=== PATIENT | male | born 1955 | race Caucasian/White ===

== ENCOUNTER 2016-06-17 18:48 | Inpatient (IN) | payer BC ==
[2016-06-17] MEDS ORDERED: SODIUM CHLORIDE 0.9% 500 ML IV STA ×2 (21:00→22:21)
[2016-06-17] MEDS ORDERED: SODIUM CHLORIDE 0.9% 1,000 ML IV STA (21:00)
[2016-06-17] MEDS ORDERED: ONDANSETRON 4 MG/2 ML VIAL IVP STA (21:01)
[2016-06-17] MEDS ORDERED: PANTOPRAZOLE 40 MG/10 ML VIAL IVP STA (21:01)
--- NOTE | 2016-06-17 21:21 | ED ---
General Adult HPI - General Chief complaint: Nausea/Vomiting/Diarrhea Stated complaint: DIARRHEA X 5 DAYS, POSS DEHYDRATION Time Seen by Provider: 06/17/16 20:35 Source: patient, RN notes reviewed, old records reviewed Mode of arrival: ambulatory - History of Present Illness Initial comments: This is a 60-year-old male ER for evaluation of persistent diarrhea and anorexia , decreased appetite. Occasional abdominal cramping. Patient has no fevers. Patient has a significant medical history of recent surgery, extensive secondary prostate cancer, patient has continued diarrhea, has been inpatient hospitalized for this diarrhea and was seen by Lavon and Bibiana. Patient has not been doing well at home, and has had multiple repeat recent admissions. Again patient has recent UTI with antibiotic use. No fevers. No blood in his stool. - Related Data Home Medications Medication Instructions Recorded Confirmed Aspirin 81 mg PO DAILY 06/17/16 06/17/16 Bisoprolol-Hctz 10-6.25 mg [Ziac 1 tab PO DAILY 06/17/16 06/17/16 10-6.25] Budesonide-Formot 160-4.5 Mcg 2 puff INHALATION RT-BID PRN 06/17/16 06/17/16 [Symbicort 160-4.5 Mcg Inhaler] Docusate [Colace] 100 mg PO BID PRN 06/17/16 06/17/16 Methotrexate Sodium [Methotrexate] 15 mg PO GENAO 06/17/16 06/17/16 Rosuvastatin Calcium [Crestor] 20 mg PO HS 06/17/16 06/17/16 oxyCODONE HCL [Roxicodone] 5 mg PO Q6H PRN 06/17/16 06/17/16 oxyCODONE HCL [Roxicodone] 10 mg PO Q6H PRN 06/17/16 06/17/16 Allergies Allergy/AdvReac Type Severity Reaction Status Date / Time No Known Allergies Allergy Verified 06/17/16 20:48 Review of Systems ROS Statement: Those systems with pertinent positive or pertinent negative responses have been documented in the HPI. ROS Other: All systems not noted in ROS Statement are negative. Past Medical History Additional Past Medical History / Comment(s): bladder CA History of Any Multi-Drug Resistant Organisms: MRSA Date of last positivie culture/infection: 2009 MDRO Source:: blood Past Surgical History: Coronary Bypass/CABG Additional Past Surgical History / Comment(s): urectomy Past Psychological History: No Psychological Hx Reported Smoking Status: Never smoker Past Alcohol Use History: None Reported Past Drug Use History: None Reported General Exam General appearance: alert, in no apparent distress Head exam: Present: atraumatic, normocephalic, normal inspection Eye exam: Present: normal appearance, PERRL, EOMI. Absent: scleral icterus, conjunctival injection, periorbital swelling ENT exam: Present: normal exam, mucous membranes moist Neck exam: Present: normal inspection. Absent: tenderness, meningismus, lymphadenopathy Respiratory exam: Present: normal lung sounds bilaterally. Absent: respiratory distress, wheezes, rales, rhonchi, stridor Cardiovascular Exam: Present: regular rate, normal rhythm, normal heart sounds. Absent: systolic murmur, diastolic murmur, rubs, gallop, clicks GI/Abdominal exam: Present: soft, normal bowel sounds. Absent: distended, tenderness, guarding, rebound, rigid Extremities exam: Present: normal inspection, full ROM, normal capillary refill. Absent: tenderness, pedal edema, joint swelling, calf tenderness Back exam: Present: normal inspection Neurological exam: Present: alert, oriented X3, CN II-XII intact Psychiatric exam: Present: normal affect, normal mood Skin exam: Present: warm, dry, intact, normal color. Absent: rash Course Vital Signs 06/17/16 19:53 Temperature 98.6 F Pulse Rate 107 H Respiratory 18 Rate Blood Pressure 132/60 O2 Sat by Pulse 98 Oximetry - Reevaluation(s) Reevaluation #1: 06/17/16 21:20 Review of medical record including today's earlier lab work Medical Decision Making - Medical Decision Making 60 mailed E her for evaluation. He presents for evaluation of diarrhea, UTI, multiple complications and recent medical history, dehydration and hyponatremia. Patient will be admitted for IV fluid resuscitation, symptomatic therapy and replacement of sodium - Lab Data Result diagrams: 06/17/16 21:27 06/17/16 21:27 Lab Results 06/17/16 06/17/16 06/17/16 Range/Units 21:27 21:27 21:27 WBC 12.2 H (3.8-10.6) k/uL RBC 2.85 L (4.30-5.90) m/uL Hgb 9.2 L (13.0-17.5) gm/dL Hct 27.9 L (39.0-53.0) % MCV 97.7 (80.0-100.0) fL MCH 32.3 (25.0-35.0) pg MCHC 33.0 (31.0-37.0) g/dL RDW 16.8 H (11.5-15.5) % Plt Count 196 (150-450) k/uL Neutrophils % 87 % Lymphocytes % 5 % Monocytes % 2 % Eosinophils % 6 % Basophils % 0 % Neutrophils # 10.6 H (1.3-7.7) k/uL Lymphocytes # 0.6 L (1.0-4.8) k/uL Monocytes # 0.2 (0-1.0) k/uL Eosinophils # 0.7 (0-0.7) k/uL Basophils # 0.0 (0-0.2) k/uL Poikilocytosis Slight Anisocytosis Slight Macrocytosis Slight PT (9.0-12.0) sec INR (<1.1) APTT (22.0-30.0) sec Sodium 128 L (137-145) mmol/L Potassium 4.4 (3.5-5.1) mmol/L Chloride 102 (98-107) mmol/L Carbon Dioxide 17 L (22-30) mmol/L Anion Gap 9 mmol/L BUN 55 H (9-20) mg/dL Creatinine 2.80 H (0.66-1.25) mg/dL Est GFR (MDRD) Af Amer 28 (>60 ml/min/1.73 sqM) Est GFR (MDRD) Non-Af 23 (>60 ml/min/1.73 sqM) Glucose 122 H (74-99) mg/dL Plasma Lactic Acid Tu (0.7-2.0) mmol/L Calcium 8.4 (8.4-10.2) mg/dL Phosphorus 4.1 (2.5-4.5) mg/dL Magnesium 1.8 (1.6-2.3) mg/dL Total Bilirubin 1.0 (0.2-1.3) mg/dL AST 59 (17-59) U/L ALT 64 (21-72) U/L Alkaline Phosphatase 206 H (38-126) U/L Total Creatine Kinase <20 L (55-170) U/L CK-MB (CK-2) 0.6 (0.0-2.4) ng/mL CK-MB (CK-2) Rel Index 0.0 Troponin I <0.012 (0.000-0.034) ng/mL Total Protein 6.2 L (6.3-8.2) g/dL Albumin 3.0 L (3.5-5.0) g/dL Urine Color Urine Appearance (Clear) Urine pH (5.0-8.0) Ur Specific Hyder (1.001-1.035) Urine Protein (Negative) Urine Glucose (UA) (Negative) Urine Ketones (Negative) Urine Blood (Negative) Urine Nitrite (Negative) Urine Bilirubin (Negative) Urine Urobilinogen (<2.0) mg/dL Ur Leukocyte Esterase (Negative) Urine RBC (0-5) /hpf Urine WBC (0-5) /hpf Urine WBC Clumps (None) /hpf Amorphous Sediment (None) /hpf Urine Bacteria (None) /hpf Hyaline Casts (0-2) /lpf Urine Mucus (None) /hpf Urine Yeast (Budding) (None) /hpf 06/17/16 06/17/16 06/17/16 Range/Units 21:27 21:27 21:27 WBC (3.8-10.6) k/uL RBC (4.30-5.90) m/uL Hgb (13.0-17.5) gm/dL Hct (39.0-53.0) % MCV (80.0-100.0) fL MCH (25.0-35.0) pg MCHC (31.0-37.0) g/dL RDW (11.5-15.5) % Plt Count (150-450) k/uL Neutrophils % % Lymphocytes % % Monocytes % % Eosinophils % % Basophils % % Neutrophils # (1.3-7.7) k/uL Lymphocytes # (1.0-4.8) k/uL Monocytes # (0-1.0) k/uL Eosinophils # (0-0.7) k/uL Basophils # (0-0.2) k/uL Poikilocytosis Anisocytosis Macrocytosis PT 12.3 H (9.0-12.0) sec INR 1.2 (<1.1) APTT 31.7 H (22.0-30.0) sec Sodium (137-145) mmol/L Potassium (3.5-5.1) mmol/L Chloride (98-107) mmol/L Carbon Dioxide (22-30) mmol/L Anion Gap mmol/L BUN (9-20) mg/dL Creatinine (0.66-1.25) mg/dL Est GFR (MDRD) Af Amer (>60 ml/min/1.73 sqM) Est GFR (MDRD) Non-Af (>60 ml/min/1.73 sqM) Glucose (74-99) mg/dL Plasma Lactic Acid Tu 0.6 L (0.7-2.0) mmol/L Calcium (8.4-10.2) mg/dL Phosphorus (2.5-4.5) mg/dL Magnesium (1.6-2.3) mg/dL Total Bilirubin (0.2-1.3) mg/dL AST (17-59) U/L ALT (21-72) U/L Alkaline Phosphatase (38-126) U/L Total Creatine Kinase (55-170) U/L CK-MB (CK-2) (0.0-2.4) ng/mL CK-MB (CK-2) Rel Index Troponin I (0.000-0.034) ng/mL Total Protein (6.3-8.2) g/dL Albumin (3.5-5.0) g/dL Urine Color Yellow Urine Appearance Cloudy (Clear) Urine pH 6.5 (5.0-8.0) Ur Specific Hyder 1.010 (1.001-1.035) Urine Protein 1+ H (Negative) Urine Glucose (UA) Negative (Negative) Urine Ketones Negative (Negative) Urine Blood Moderate H (Negative) Urine Nitrite Negative (Negative) Urine Bilirubin Negative (Negative) Urine Urobilinogen <2.0 (<2.0) mg/dL Ur Leukocyte Esterase Large H (Negative) Urine RBC 97 H (0-5) /hpf Urine WBC >182 H (0-5) /hpf Urine WBC Clumps Many H (None) /hpf Amorphous Sediment Occasional H (None) /hpf Urine Bacteria Moderate H (None) /hpf Hyaline Casts 8 H (0-2) /lpf Urine Mucus Rare H (None) /hpf Urine Yeast (Budding) Moderate H (None) /hpf Disposition Clinical Impression: Dehydration, Gastroenteritis, UTI (urinary tract infection), Hyponatremia Disposition: ADMITTED IP TO THIS HOSP Referrals: Maximilian Conn MD [Primary Care Provider] - 1-2 days
[2016-06-17 21:44] LABS: Anisocytosis Slight; Basophils % (A) 0 %; CH 32.9; CHCM 33.8; Eosinophils # (A) 0.7 k/uL (0-0.7); Eosinophils % (A) 6 %; HCT 27.9 % (39.0-53.0); HDW 3.96; HGB 9.2 gm/dL (13.0-17.5); Luc # (Auto) 0.11; Luc % (Auto) 1; Lymphocytes # (A) 0.6 k/uL (1.0-4.8); Lymphocytes % (A) 5 %; MCH 32.3 pg (25.0-35.0); MCV 97.7 fL (80.0-100.0); Macrocytosis Slight; Mean Platelet Volume 7.8; Monocytes # (A) 0.2 k/uL (0-1.0); Monocytes % (A) 2 %; Neutrophils # (A) 10.6 k/uL (1.3-7.7); Neutrophils % (A) 87 %; Poikilocytosis Slight; RBC 2.85 m/uL (4.30-5.90); RDW 16.8 % (11.5-15.5); WBC 12.2 k/uL (3.8-10.6); WBC (Perox) 12.38
[2016-06-17 21:51] LABS: Amorphous Sediment,Urine Occasional /hpf; Appearance,Urine Cloudy (Clear); Bacteria,Urine Moderate /hpf; Bilirubin,Urine Negative (Negative); Glucose,Urine (UA) Negative (Negative); Ketones,Urine Negative (Negative); Leukocyte Esterase,Urine Large (Negative); Mucus,Urine Rare /hpf; Nitrite,Urine Negative (Negative); PH, Urine 6.5 (5.0-8.0); Particle Count 16435; Protein,Urine 1+ (Negative); RBC,Urine 97 /hpf (0-5); UA Billing (MACRO vs. MICRO) MICRO; Urobilinogen,Urine <2.0 mg/dL (<2.0); WBC,Urine >182 /hpf (0-5)
[2016-06-17 21:53] LABS: Calcium 8.4 mg/dL (8.4-10.2); Magnesium 1.8 mg/dL (1.6-2.3); Phosphorous 4.1 mg/dL (2.5-4.5); Potassium 4.4 mmol/L (3.5-5.1); Total Protein 6.2 g/dL (6.3-8.2)
[2016-06-17 22:00] LABS: INR 1.2 (<1.1); Partial Thromboplastin Time 31.7 sec (22.0-30.0); Prothrombin Time 12.3 sec (9.0-12.0)
[2016-06-17 22:05] LABS: Creatine Kinase <20 U/L (55-170)
[2016-06-17 22:18] LABS: Creatine Kinase MB 0.6 ng/mL (0.0-2.4); Troponin I <0.012 ng/mL (0.000-0.034)
[2016-06-17] MEDS ORDERED: ONDANSETRON 4 MG/2 ML VIAL IVP PRN (22:21)
[2016-06-17] MEDS: SODIUM CHLORIDE 0.9% 1,000 ML IV ONE (22:39)
[2016-06-18 03:15] VITALS: BMI 36.3
[2016-06-18] MEDS ORDERED: cefTRIAXone 1,000 MG in SODIUM CHLORIDE 0.9% 100 ML IVPB SCH (09:00)
[2016-06-18] MEDS: PANTOPRAZOLE 40 MG/10 ML VIAL IVP SCH (09:12)
[2016-06-18] MEDS ORDERED: RX INFO: IV CONTRAST WAS GIVEN 1 EACH MISC MISCELLANE PRN (10:49)
[2016-06-18] MEDS: IOHEXOL 350 MG/ML 25 ML BOTTLE (ORAL USE) PO PRN ×2 (12:04→12:52)
[2016-06-18] MEDS: SODIUM CHLORIDE 0.9% 1,000 ML IV ONE (12:09)
[2016-06-18] MEDS: SODIUM CHLORIDE 0.9% 1,000 ML IV SCH (14:16)
--- NOTE | 2016-06-18 14:22 | CT ---
EXAMINATION TYPE: CT abdomen pelvis wo con DATE OF EXAM: 06/18/2016 1:43 PM COMPARISON: Previous study dated 01/14/2010. HISTORY: Recurring infection of old PUNEET site/Urostomy CT DLP: 1448.5 mGycm Automated exposure control for dose reduction was used. FINDINGS: There is some scarring in the right middle lobe. There is a 5 mm noncalcified nodule immedi ately adjacent to this is seen on image 2. There is a 4.4 mm nodule in the posterior basal segment of the left lower lobe best seen on image 7. There is a 7.5 mm nodule in the lateral basal segment of t he left lower lobe best seen on image 5 none of these lesions were present previously. There is no pleural or pericardial fluid. There is cardiomegaly. There is a prosthetic mitral valve i n place. Within the abdomen, there is evidence of old granulomatous disease involving the liver and spleen. Th e gallbladder is normal. Both adrenal glands are normal. There is bilateral hydronephrosis and hydroureter down to the level of the patient's urostomy. No placido al calcifications are seen. Limited views of the pancreas appear normal. There is moderate atheromatous calcification of the visualized arterial tree. There is no significant retroperitoneal, iliac or inguinal adenopathy. There is no significant diverticular change and there is no radiographic evidence of diverticulitis. There is a 3.4 cm annular narrowing in the proximal ascending colon. The appendix is not visualized. Small bowel loops appear normal. There is no free fluid and no free air. There is hypertrophic spondylosis within the spine as well as degenerative disc disease. IMPRESSION: 1. BILATERAL HYDRONEPHROSIS AND HYDROURETER, LIKELY SECONDARY TO THE PATIENT MOST LIKELY SECONDARY TO THE PATIENT'S UROSTOMY. 2. MULTIPLE PULMONARY NODULES. THESE WERE NOT PRESENT PREVIOUSLY. 3. CARDIOMEGALY AND A PROSTHETIC MITRAL VALVE. 4. OLD GRANULOMATOUS DISEASE OF THE LIVER AND SPLEEN. 5. ANNULAR NARROWING OF THE PROXIMAL ASCENDING COLON 6. HYPERTROPHIC SPONDYLOSIS.
[2016-06-18] MEDS ORDERED: SYMBICORT 160-4.5 MCG INHALER INHALATION PRN (15:48)
[2016-06-18] MEDS ORDERED: TEMAZEPAM 15 MG CAP PO PRN (15:59)
[2016-06-18] MEDS ORDERED: ALPRAZolam 0.25 MG TAB PO PRN (15:59)
--- NOTE | 2016-06-18 18:30 | HP ---
DATE OF ADMISSION: CHIEF COMPLAINT: Nausea, vomiting and diarrhea. HISTORY OF PRESENT ILLNESS: This 60-year-old gentleman with a past medical history of MRSA, history of coronary artery disease, coronary artery bypass grafting being followed by Dr. Conn in the outpatient setting also had a recent complicated medical history with bladder cancer. The patient had surgery at [facility] about a month ago. The patient had urostomy. Patient also had PUNEET drain at that time. The patient came home and the patient had a few episodes of diarrhea. On the , the patient had outpatient appointment with Urology Clinic at [facility] and potassium was found to be high. The patient was evaluated in the ER and subsequently patient admitted in the hospital and Bactrim DS was initiated. Patient was sent home on Bactrim DS. But currently the patient is complaining of nausea and continued diarrhea intermittently and the patient came to [facility] and admitted for further evaluation and treatment. There is no history of any fever, rigor or chills. No history of headache, loss of consciousness, seizures. The patient also had occasional abdominal cramping also. The patient also reports some leaking of clear fluid from one of the previous PUNEET sites also. The urostomy bag appears to be draining okay at this time. There is no history of fever, rigors, chills. No history of headaches, loss of consciousness, seizures. PAST MEDICAL HISTORY: History of recent bladder cancer, history of methicillin-resistant Staphylococcus aureus, coronary artery disease, coronary artery bypass graft. Medications prior to admission are: 1. Oxycodone 5 mg q.6 p.r.n. and 10 mg q.6 p.r.n. 2. Crestor 20 mg q.h.s. 3. Methotrexate 50 mg p.o. Monday. 4. Colace 100 mg b.i.d. p.r.n. 5. Symbicort 160/4.5, 2 puffs b.i.d. 7. Aspirin 81 mg daily. ALLERGIES: None. FAMILY HISTORY: History of hypertension in the family. SOCIAL HISTORY: No history of smoking, no history of alcohol intake. REVIEW OF SYSTEMS: ENT: No diminished vision, no diminished hearing. CARDIOVASCULAR: No angina or palpitations. RESPIRATORY: No cough. GI: As mentioned earlier. : As mentioned earlier. NERVOUS SYSTEM: No numbness or weakness. ALLERGY/IMMUNOLOGY: No asthma or hayfever. MUSCULOSKELETAL: As mentioned earlier. HEMATOLOGY/ONCOLOGY: As mentioned earlier. ENDOCRINE: No history of diabetes or hypothyroidism. CONSTITUTIONAL: As mentioned earlier. DERMATOLOGY: As mentioned earlier. RHEUMATOLOGY: Negative. PSYCHIATRY: Negative. PHYSICAL EXAMINATION: Patient is alert and oriented x3. Pulse 111, blood pressure 118/70, respirations 20, temperature 98 degrees, pulse ox 98% on room air. HEENT: Conjunctivae normal. Oral mucosa moist. NECK: No jugular venous distention. No carotid bruit. No lymph node enlargement. CARDIOVASCULAR: S1 and S2, muffled. No S3, no S4. RESPIRATORY: Breath sounds diminished at the bases. No rhonchi, no crackles. ABDOMEN: Soft, obese. Urostomy bag present. Mild diffuse discomfort to palpation. No guarding, no rigidity. No mass palpable. Minimal drainage on the left iliac was also noted, left lower quadrant. LEGS: No edema, no swelling. NERVOUS SYSTEM: Higher function as mentioned. Moves all four limbs. No focal motor deficits. LYMPHATIC: No lymphadenopathy in the neck, axillae or groin. SKIN: No ulcer, rash or bleeding. LABS: Abdominal and pelvis CAT scan, which was ordered today showed evidence of bilateral hydronephrosis and hydroureter secondary to urostomy; multiple pulmonary nodules not present previously; cardiomegaly and prosthetic mitral valve and old granulomatous disease of the liver and spleen; narrowing of the proximal ascending colon and hypertrophic spondylosis also. ASSESSMENT: 1. Nausea, vomiting, diarrhea possibly acute diarrheal disease with resulting dehydration of undetermined etiology, rule out Clostridium difficile colitis. 2. Possible acute renal failure, rule out postobstructive uropathy. 3. Bilateral hydronephrosis on the CAT scan. 4. History of recent urostomy for bladder cancer. 5. Leakage of fluid from the left iliac PUNEET drain site. 6. Hyponatremia. 7. Increased WBC. 8. Anemia, normocytic. 9. Increased random blood sugar. 10. Mild hypoalbuminemia with mild to moderate protein calorie malnutrition. 11. Possible urinary tract infection. 12. Methicillin-resistant Staphylococcus aureus. 13. History of bladder cancer. 14. History of coronary artery disease, coronary artery bypass graft. 15. Obesity with body mass index of 36.3. 16. FULL CODE. RECOMMENDATIONS AND DISCUSSION: In this 60-year-old gentleman who presented with multiple complex medical issues, we will monitor the patient closely. Continue the current medications, continue with symptomatic treatment. The patient was initiated on broad-spectrum IV antibiotics. Check a stool Clostridium difficile and also stool for WBCs and other than that, CT scan has been ordered. I would also recommend the case management director to get in touch with Urology Team at [facility] regarding the abnormal CAT scan. Otherwise, continue the rest of the medications. DVT prophylaxis. Further recommendations to follow. Copy of dictation forwarded to Dr. Conn, who is the primary physician. See orders for further details. Continue IV hydration and repeat the labs tomorrow. Also cultures were requested. MTDD
[2016-06-18] MEDS ORDERED: ATORVASTATIN 20 MG TAB PO SCH (21:00)
[2016-06-18] MEDS: HEPARIN SODIUM,PORCINE 5,000 UNIT/ML 1 ML VIAL SQ SCH (22:07)
[2016-06-18] MEDS: ATORVASTATIN 40 MG TAB PO SCH (22:09)
[2016-06-19] MEDS: SODIUM CHLORIDE 0.9% 1,000 ML IV SCH ×3 (05:41→14:14)
[2016-06-19 08:28] LABS: Anisocytosis Slight; Basophils % (A) 0 %; CH 32.7; CHCM 33.7; Eosinophils # (A) 0.7 k/uL (0-0.7); Eosinophils % (A) 6 %; HCT 25.2 % (39.0-53.0); HDW 3.93; HGB 8.4 gm/dL (13.0-17.5); Luc # (Auto) 0.16; Luc % (Auto) 1; Lymphocytes # (A) 0.4 k/uL (1.0-4.8); Lymphocytes % (A) 4 %; MCH 32.6 pg (25.0-35.0); MCHC 33.4 g/dL (31.0-37.0); MCV 97.4 fL (80.0-100.0); Macrocytosis Slight; Mean Platelet Volume 7.5; Monocytes # (A) 0.5 k/uL (0-1.0); Monocytes % (A) 4 %; Neutrophils # (A) 10.2 k/uL (1.3-7.7); Neutrophils % (A) 85 %; Poikilocytosis Slight; RBC 2.58 m/uL (4.30-5.90); RDW 17.1 % (11.5-15.5); WBC (Perox) 12.33
[2016-06-19 08:39] LABS: Calcium 8.4 mg/dL (8.4-10.2)
[2016-06-19] MEDS ORDERED: METHOTREXATE SODIUM 2.5 MG TAB PO SCH (09:00)
[2016-06-19] MEDS: PANTOPRAZOLE 40 MG/10 ML VIAL IVP SCH (09:00)
[2016-06-19] MEDS: HEPARIN SODIUM,PORCINE 5,000 UNIT/ML 1 ML VIAL SQ SCH ×2 (09:00→21:55)
[2016-06-19] MEDS: ASPIRIN 81 MG CHEW PO SCH (09:00)
[2016-06-19] MEDS: BISOPROLOL-HCTZ 10-6.25 MG 1 EACH TAB PO SCH (09:00)
--- NOTE | 2016-06-19 10:13 | P.NPCON ---
History of Present Illness - Reason for Consult acute renal failure - History of Present Illness Reason for consultation: Acute kidney injury History of present illness: Patient is a 60-year-old male seen in renal consultation for acute kidney injury. Unclear as to what his baseline renal function is. Creatinine was 2.9 on admission and is improved to 2.4 today. He was also hyponatremic with a sodium level of 128 which is improved to 132 with IV hydration. Patient has history of bladder cancer and has a urostomy tube in place. He also had a PUNEET drain which was discontinued prior to his discharge from [facility] about 2 weeks ago. Patient states he's been feeling quite weak and dizzy and also has had intermittent diarrhea for the last couple of days. Diarrhea seems to have mostly resolved as he hasn't had any in the last 24 hours. Appetite is fair. No vomiting. Does admit to using Aleve intermittently prior to coming to the hospital. Denies family history of renal disease. Denies chest pain or shortness of breath. Hemodynamically stable. Vital signs are stable. General: The patient appeared well nourished and normally developed. HEENT: Head exam is unremarkable. Neck is without jugular venous distension. LUNGS: Lungs are clear to auscultation and percussion. Breath sounds decreased. HEART: Rate and Rhythm are regular. First and second heart sounds normal. No murmurs, rubs or gallops. ABDOMEN: Abdominal exam reveals normal bowel sounds. Non-tender and non- distended. No evidence of peritonitis. EXTREMITITES: No clubbing, cyanosis, or edema. Past Medical History Additional Past Medical History / Comment(s): bladder CA History of Any Multi-Drug Resistant Organisms: MRSA Date of last positivie culture/infection: 2009 MDRO Source:: blood Past Surgical History: Coronary Bypass/CABG Additional Past Surgical History / Comment(s): urectomy/urostomy Past Psychological History: No Psychological Hx Reported Smoking Status: Never smoker Past Alcohol Use History: None Reported Past Drug Use History: None Reported - Past Family History Mother Family Medical History: Hypertension Medications and Allergies Home Medications Medication Instructions Recorded Confirmed Type Aspirin 81 mg PO DAILY 06/17/16 06/17/16 History Bisoprolol-Hctz 10-6.25 mg [Ziac 1 tab PO DAILY 06/17/16 06/17/16 History 10-6.25] Budesonide-Formot 160-4.5 Mcg 2 puff INHALATION RT-BID PRN 06/17/16 06/17/16 History [Symbicort 160-4.5 Mcg Inhaler] Docusate [Colace] 100 mg PO BID PRN 06/17/16 06/17/16 History Methotrexate Sodium [Methotrexate] 15 mg PO GENAO 06/17/16 06/17/16 History Rosuvastatin Calcium [Crestor] 20 mg PO HS 06/17/16 06/17/16 History oxyCODONE HCL [Roxicodone] 5 mg PO Q6H PRN 06/17/16 06/17/16 History oxyCODONE HCL [Roxicodone] 10 mg PO Q6H PRN 06/17/16 06/17/16 History Allergies Allergy/AdvReac Type Severity Reaction Status Date / Time No Known Allergies Allergy Verified 06/17/16 20:48 Physical Exam Vitals: Vital Signs Temp Pulse Resp BP Pulse Ox 06/19/16 07:00 97.5 F L 101 H 16 118/56 99 06/18/16 23:00 99.6 F 106 H 16 115/59 97 06/18/16 22:10 86 16 06/18/16 15:00 98.7 F 105 H 17 117/51 99 Intake and Output 06/18/16 06/19/16 06/19/16 22:59 06:59 14:59 Intake Total 240 Output Total 1300 Balance 240 -1300 Intake: Oral 240 Output: Urine 1300 Other: Voiding Method Ileal Conduit (Right) Results - Lab Results Most recent lab results Calcium 8.4 mg/dL (8.4-10.2) 06/19/16 08:05 Phosphorus 4.1 mg/dL (2.5-4.5) 06/17/16 21:27 Magnesium 1.8 mg/dL (1.6-2.3) 06/17/16 21:27 06/19/16 08:05 06/19/16 08:05 Assessment and Plan Plan: Assessment: #1. Nonoliguric acute kidney injury mostly prerenal in nature secondary to diarrhea and NSAIDs. Improving with IV hydration. Creatinine was 2.8 on admission and is down to 2.4 today. Unclear as to what his baseline renal function is. #2. Bilateral hydronephrosis status post urostomy placement 18 with stiff machine about 2 weeks ago. #3. History of bladder cancer. #4. Hypovolemic hyponatremia improving with IV hydration. #5. Metabolic acidosis secondary to acute kidney injury and diarrhea. #6. Anemia. Rule out iron deficiency. Plan: Continue normal saline to be run at 100 mL an hour. Avoid nephrotoxic agents and hypotensive episodes. Diuretics held. Start oral sodium bicarbonate supplementation. Encourage oral intake. Check iron studies. Repeat electrolytes in the morning. Thank you for the consultation. I will continue to follow the patient with you during his hospital stay.
[2016-06-19 10:49] LABS: % Iron Saturation 7.7 % (20-50)
--- NOTE | 2016-06-19 17:03 | PN ---
DATE OF SERVICE: 06/19/2016 This 60-year-old gentleman admitted with nausea, vomiting, diarrhea, possibly acute gastroenteritis and resulting dehydration, leading to acute renal failure. The patient was rehydrated. Creatinine improved to 2.44. Of interest, CAT scan of the abdomen showed bilateral hydronephrosis, possibly secondary to urostomy which was done recently, according to Dr. Eden. Also noted that the patient had some draining of clear fluid from the left iliac fossa also at the place of the previous PUNEET drain. Past medical history reviewed. REVIEW OF SYSTEMS: CARDIOVASCULAR: No angina or palpitations. RESPIRATORY: As mentioned earlier. GI: As mentioned earlier. : No dysuria. Nervous system: No numbness or weakness. Current medications are reviewed and include: 1. Xanax 0.25 t.i.d. and p.r.n. 2. Aspirin 81 mg daily. 3. Lipitor 40 mg. 4. Ziac 6.25 mg p.o. daily. 5. Symbicort 160/4.5, 2 puffs b.i.d. 6. Rocephin 1 gram daily. 7. Colace 100 mg p.o. b.i.d. 8. Heparin 5000 subcu b.i.d. 9. Methotrexate 15 mg every 7 days. 10. Zofran 4 mg IV q6h. 11. OxyIR 5 mg q.6h p.r.n. 13. Protonix 40 mg daily. 14. Restoril 15 mg q.h.s. p.r.n. PHYSICAL EXAMINATION: Patient is alert and oriented x2. Pulse 101, blood pressure is 118/56, respirations 16, temperature 97.4, pulse ox 99% on room air. HEENT: Conjunctivae normal. Oral mucosa is moist. NECK: No jugular venous distention. No carotid bruit. No lymph node enlargement. CARDIOVASCULAR: S1 and S2 muffled. No S3, no S4. RESPIRATORY: Breath sounds diminished at the bases. No rhonchi, no crackles. ABDOMEN: Soft, obese, nontender. No mass palpable. Urostomy present. Legs: No edema. No swelling. Nervous system: Higher functions as mentioned earlier. Moves all 4 limbs. No focal motor or sensory deficits. LYMPHATICS: No lymph nodes palpable in the neck, axilla or groin. SKIN: No skin ulcer, rash or bleeding. LABS: At this time shows WBC 12, hemoglobin is 8.4. Sodium is 132. CO2 is 15. Creatinine is 2.44. UA noted. Cultures are pending at this time. ASSESSMENT: 1. Nausea, vomiting, diarrhea, possible acute diuresis with gastroenteritis, resulting dehydration leading to acute renal failure, possibly acute tubular necrosis and prerenal factors. 2. Rule out postobstructive uropathy. 3. Bilateral hydronephrosis, mild on the CT scan. 4. History of recent urostomy for bladder cancer. 5. Leakage of fluid from the left iliac PUNEET drain site. 6. Hyponatremia. 7. Increased WBC. 8. Anemia, normocytic. 9. Increased random blood sugar. 10. Mild hypoalbuminemia with mild to moderate protein calorie malnutrition. 11. Possible urinary tract infection. 12. History of Methicillin-resistant Staph aureus. 13. History of bladder cancer. 14. History of coronary artery disease, coronary artery bypass grafting. 15. Obesity with body mass index of 36.3. 16. FULL CODE. RECOMMENDATIONS AND DISCUSSION: In this 60-year-old gentleman who presented with multiple complex medical issues, we will monitor the patient closely. Continue the current medications. Continue symptomatic treatment. Otherwise, continued IV fluids. Monitor closely empiric antibiotics. Repeat labs in the morning. I also discussed with the case repairer to get in touch with [facility] urology team so that they are aware of the CAT scan findings and the current state of the patient. Discussed with Chichi, the case repairer who is working on this. Otherwise, continue with the rest of the medications. Discussed with the patient, stable, but prognosis guarded. Further recommendations to follow. MTDD
[2016-06-19] MEDS: ATORVASTATIN 40 MG TAB PO SCH (21:19)
[2016-06-19] MEDS: SODIUM BICARBONATE TAB 650 MG TAB PO SCH (21:54)
[2016-06-20] MEDS: SODIUM CHLORIDE 0.9% 1,000 ML IV SCH (04:53)
[2016-06-20] MEDS: HEPARIN SODIUM,PORCINE 5,000 UNIT/ML 1 ML VIAL SQ SCH ×2 (07:57→20:18)
[2016-06-20] MEDS: BISOPROLOL-HCTZ 10-6.25 MG 1 EACH TAB PO SCH (07:57)
[2016-06-20] MEDS: SODIUM BICARBONATE TAB 650 MG TAB PO SCH ×2 (07:57→20:18)
[2016-06-20] MEDS: ASPIRIN 81 MG CHEW PO SCH (07:57)
[2016-06-20] MEDS: PANTOPRAZOLE 40 MG/10 ML VIAL IVP SCH (07:57)
[2016-06-20 08:07] LABS: Anisocytosis Slight; Basophils % (A) 0 %; CH 32.8; CHCM 33.4; Eosinophils # (A) 0.8 k/uL (0-0.7); Eosinophils % (A) 6 %; HCT 23.7 % (39.0-53.0); HDW 3.91; HGB 7.8 gm/dL (13.0-17.5); Hypochromasia Slight; Luc # (Auto) 0.13; Luc % (Auto) 1; Lymphocytes # (A) 0.5 k/uL (1.0-4.8); Lymphocytes % (A) 4 %; MCH 32.4 pg (25.0-35.0); MCHC 32.9 g/dL (31.0-37.0); MCV 98.6 fL (80.0-100.0); Macrocytosis Slight; Mean Platelet Volume 8.1; Monocytes # (A) 0.4 k/uL (0-1.0); Monocytes % (A) 3 %; Neutrophils % (A) 86 %; Poikilocytosis Slight; RDW 17.1 % (11.5-15.5); WBC 12.9 k/uL (3.8-10.6); WBC (Perox) 13.34
--- NOTE | 2016-06-20 08:30 | P.PN ---
Subjective Principal diagnosis: hydronephrosis/renal failure. This is a 60-year-old white male essentially admitted for UTI with nausea and vomiting. He had similar episode at [facility] after being treated for hydronephrosis with urostomy. The patient has an underlying history of cancer. Dr. Vázquez has been treating the patient previous to this. Objective - Vital Signs Vital signs: Vital Signs Temp 98.3 F 06/20/16 07:00 Pulse 96 06/20/16 07:00 Resp 16 06/20/16 07:00 BP 101/50 06/20/16 07:00 Pulse Ox 96 06/20/16 07:00 Intake & Output 06/19/16 06/20/16 06/20/16 18:59 06:59 18:59 Intake Total 1160 Output Total 1800 1980 Balance -1800 -820 Weight 102.058 kg Intake: Intake, IV Titration 800 Amount Sodium Chloride 0.9% 1, 800 000 ml @ 100 mls/hr IV . Q10H [facility] Rx#:[id number] Oral 360 Output: Drainage 100 380 Left Abdomen 100 380 Urine 1700 1600 Other: Voiding Method Ileal Conduit (Right) Ileal Conduit (Right) Ileal Conduit ( Right) - Constitutional General appearance: Present: obese - EENT Eyes: Absent: abnormal pupil - Respiratory Respiratory: right: CTA - Cardiovascular Rhythm: regular Heart sounds: normal: S1, S2 - Gastrointestinal General gastrointestinal: Present: soft. Absent: tenderness - Musculoskeletal Musculoskeletal: Present: gait normal - Labs CBC & Chem 7: 06/20/16 07:05 06/19/16 08:05 Labs: Abnormal Lab Results - Last 24 Hours (Table) 06/19/16 06/19/16 06/19/16 Range/Units 08:05 08:05 08:05 WBC 12.0 H (3.8-10.6) k/uL RBC 2.58 L (4.30-5.90) m/uL Hgb 8.4 L (13.0-17.5) gm/dL Hct 25.2 L (39.0-53.0) % RDW 17.1 H (11.5-15.5) % Neutrophils # 10.2 H (1.3-7.7) k/uL Lymphocytes # 0.4 L (1.0-4.8) k/uL Eosinophils # (0-0.7) k/uL Sodium 132 L (137-145) mmol/L Chloride 108 H (98-107) mmol/L Carbon Dioxide 15 L (22-30) mmol/L BUN 53 H (9-20) mg/dL Creatinine 2.44 H (0.66-1.25) mg/dL Glucose 114 H (74-99) mg/dL Iron 18 L (49-181) ug/dL TIBC 233 L (261-462) ug/dL % Saturation 7.7 L (20-50) % Ferritin 612 H (18-464) ng/mL 06/20/16 Range/Units 07:05 WBC 12.9 H (3.8-10.6) k/uL RBC 2.40 L (4.30-5.90) m/uL Hgb 7.8 L (13.0-17.5) gm/dL Hct 23.7 L (39.0-53.0) % RDW 17.1 H (11.5-15.5) % Neutrophils # 11.0 H (1.3-7.7) k/uL Lymphocytes # 0.5 L (1.0-4.8) k/uL Eosinophils # 0.8 H (0-0.7) k/uL Sodium (137-145) mmol/L Chloride (98-107) mmol/L Carbon Dioxide (22-30) mmol/L BUN (9-20) mg/dL Creatinine (0.66-1.25) mg/dL Glucose (74-99) mg/dL Iron (49-181) ug/dL TIBC (261-462) ug/dL % Saturation (20-50) % Ferritin (18-464) ng/mL Assessment and Plan (1) UTI (urinary tract infection) Status: Acute (2) Hydronephrosis Status: Acute Plan: continue current regimen of antibiotic treatment. Urinalysis with culture and sensitivities show enterococcus. Sensitivity is still pending. Anemia which is multifactorial. See orders otherwise. Time with Patient: Greater than 30
[2016-06-20 08:31] LABS: Calcium 8.3 mg/dL (8.4-10.2); Potassium 4.8 mmol/L (3.5-5.1)
--- NOTE | 2016-06-20 10:10 | PN ---
Patient is seen for followup for acute kidney injury. He was admitted to the hospital with a creatinine of 2.8. His creatinine is now down to 2.4 mg/dL. Previous creatinine is not available for comparison. Patient was also hyponatremic with sodium of 128. It is now increased to 133. Patient is maintained on IV fluids, normal saline at 100 mL an hour. On examination, he is currently comfortable, awake, not in any acute distress. Blood pressure is 101/50, heart rate 96 per minute. He is afebrile. Examination of the heart, S1 and S2. Examination of the lungs, bilateral breath sounds are heard. Decreased breath sounds in the bases. Abdomen is soft, nontender. Examination of lower extremities shows no evidence of edema. Labs reveal sodium of 133, potassium 4.8, BUN 53, serum creatinine 2.46, hemoglobin 7.8 g/dL. ASSESSMENT: 1. Acute kidney injury with renal function slightly better. 2. Rule out chronic kidney disease, previous creatinine not available for comparison. 3. Severe metabolic acidosis, CO2 is down to 11. Will start patient on IV bicarb. No ongoing diarrhea. 4. Bilateral hydronephrosis and hydroureter with a history of bladder cancer, currently with a urostomy, being managed at [facility]. 5. Hypervolemic hyponatremia, currently improved with IV hydration. 6. Severe metabolic acidosis. Start IV bicarb. Continue with oral bicarb as well. Patient may need Urology consultation.
[2016-06-20] MEDS: DEXTROSE 5% IN WATER 1,000 ML with SODIUM BICARB (1 MEQ/ML) 150 ML IV SCH (11:44)
[2016-06-20] MEDS: ATORVASTATIN 40 MG TAB PO SCH (20:18)
[2016-06-21] MEDS: DEXTROSE 5% IN WATER 1,000 ML with SODIUM BICARB (1 MEQ/ML) 150 ML IV SCH ×4 (07:22→22:10)
[2016-06-21 08:19] LABS: Anisocytosis Slight; Basophils % (A) 0 %; CH 32.4; CHCM 33.4; Eosinophils # (A) 0.6 k/uL (0-0.7); Eosinophils % (A) 6 %; HCT 23.7 % (39.0-53.0); HDW 4.01; HGB 7.8 gm/dL (13.0-17.5); Hypochromasia Slight; Luc # (Auto) 0.07; Luc % (Auto) 1; Lymphocytes # (A) 0.4 k/uL (1.0-4.8); Lymphocytes % (A) 4 %; MCH 32.2 pg (25.0-35.0); MCV 97.5 fL (80.0-100.0); Macrocytosis Slight; Mean Platelet Volume 7.1; Monocytes # (A) 0.1 k/uL (0-1.0); Monocytes % (A) 1 %; Neutrophils # (A) 8.8 k/uL (1.3-7.7); Neutrophils % (A) 88 %; Poikilocytosis Moderate; RBC 2.43 m/uL (4.30-5.90); RDW 17.1 % (11.5-15.5); WBC (Perox) 10.51
[2016-06-21] MEDS: HEPARIN SODIUM,PORCINE 5,000 UNIT/ML 1 ML VIAL SQ SCH ×2 (08:23→20:04)
[2016-06-21] MEDS: ASPIRIN 81 MG CHEW PO SCH (08:23)
[2016-06-21] MEDS: PANTOPRAZOLE 40 MG/10 ML VIAL IVP SCH (08:23)
[2016-06-21] MEDS: SODIUM BICARBONATE TAB 650 MG TAB PO SCH ×2 (08:23→20:04)
[2016-06-21] MEDS: BISOPROLOL-HCTZ 10-6.25 MG 1 EACH TAB PO SCH (08:23)
[2016-06-21 08:35] VITALS: RESP 18
[2016-06-21 08:36] LABS: Calcium 7.8 mg/dL (8.4-10.2); Potassium 4.1 mmol/L (3.5-5.1); Total Bilirubin 0.6 mg/dL (0.2-1.3); Total Protein 5.1 g/dL (6.3-8.2)
[2016-06-21] MEDS: DOCUSATE 100 MG CAP PO PRN ×2 (10:31→19:35)
--- NOTE | 2016-06-21 10:50 | CDI ---
In responding to this query, please exercise your independent professional judgment. The [facility] Coding Staff and Clinical Documentation Specialists appreciate your assistance in clarifying documentation, maintaining compliance with coding guidelines, accurately documenting patients condition and capturing severity of illness. The fact that a question is asked does not imply that any particular answer is desired or expected. Communication forms are a method of clarifying documentation and are not made part of the Legal Health Record. Thank you in advance for your clarification. Last Revision, January 2015 Frances Gao [address] [place] [address] Documentation Clarification Form Date: 06/21/2016 10:39:00 AM From: Violet Ramos RN, CCDS Admit Date: 06/17/2016 10:21:00 PM Patient Name: Jose Maria Zimmerman Visit Number: [id number] Dr. Maximilian Conn A diagnosis of UTI has been documented in the H&P and Progress Notes . History/Risk factors: Recent bladder cancer resection with urostomy Per documentation in the H&P and Progress Notes this patient was admitted with a urostomy. Clinical Indicators: 4/ Attending Progress Note: "History of recent urostomy for bladder cancer. Leakage of fluid from the left iliac PUNEET drain site. Possible urinary tract infection." 06/20 Nephrology Consult: "Bilateral hydronephrosis and hydroureter with a history of bladder cancer, currently with a urostomy, being managed at [facility]. Urinalysis: +1 Protein, moderate blood, large le, 97 rbc, > 182 wbc, many WBC clumps, moderate bacteria, 8 HC< rare mucus, moderate yeast Urine culture: + enterococcus faecium, + Diana albicans Lab results: WBC 12.2/12/12.9/10, Neutrophils 10.6/11/8.8 Treatment: Rocephin 1 gm IVPB Q 24 hrs 2L IVF Bolus In your professional opinion, can you please clarify the etiology of the UTI, if known? UTI is d/t Urostomy UTI not related to urostomy Other condition, please specify Unable to determine If an infective organism is present, please specify cause and effect relationship if applicable. Please document in your progress notes and discharge summary in order to capture severity of illness and risk of mortality. Include clinical findings that support your diagnosis. FYI: Press F11 to launch patient chart Place X here if this finding has no clinical significance, is not applicable or if you are not able to provide any additional documentation. MTDD
[2016-06-21] MEDS: SODIUM FERRIC GLUCONAT-SUCROSE 125 MG in SODIUM CHLORIDE 0.9% 100 ML IVPB SCH (12:52)
[2016-06-21] MEDS: ATORVASTATIN 40 MG TAB PO SCH (20:04)
[2016-06-21] MEDS ORDERED: VANCOMYCIN 1,000 MG in SODIUM CHLORIDE 0.9% 250 ML IVPB STA (20:37)
--- NOTE | 2016-06-21 21:24 | PN ---
Patient is seen in follow-up for acute kidney injury. His renal function has improved to some degree; however, patient has significant lower extremity edema. He denies any shortness of breath or chest pains. He is maintained on IV bicarb, which was started yesterday. Patient has had good urine output. He has an ileal conduit. Patient has been seen by Dr. Vázquez in the past but recently has had treatment at [facility] for bladder cancer. On examination, the patient is comfortable, not in any acute distress. Blood pressure is 105/57, heart rate 104 per minute. The patient is afebrile. Examination of the heart S1 and S2. Examination of the lungs: Bilateral breath sounds are heard. ABDOMEN: Soft, nontender. Examination of lower extremities shows edema 2+ bilaterally. CLOTHING CONSULTANT exam is grossly intact. Labs show sodium 131, potassium 4.1, BUN 48, serum creatinine 2.09. ASSESSMENT: 1. Acute kidney injury with some improvement in renal function with creatinine coming down from 2.8 to 2.09. At this time we do not have any previous labs available for comparison. A CAT scan does show evidence of bilateral hydronephrosis and hydroureter. I am not sure if this is chronic or new. We will consult urology. Currently, patient has good urine output. I will decrease the IV fluids. We will give him one dose of Lasix as well. 2. Coronary artery disease, status post coronary artery bypass surgery. 3. Severe metabolic acidosis, likely acute secondary to gastrointestinal fluid loss; however, this was more acute and patient does not have any significant diarrhea. This may be related to his renal failure as well. Currently patient is maintained on IV bicarb, I will decrease the bicarb to about 50 mL an hour and continue with oral sodium bicarb. 4. Hyponatremia, currently improved, status post saline. 5. Rule out chronic kidney disease. Previous labs are not available for comparison. 6. Iron deficiency receiving IV iron. 7. Urinary tract infection with urine culture growing enterococcus species and Diana albicans, maintained on Rocephin not sure if he will respond to the Rocephin as it is resistant to ampicillin and I will give him a dose of vancomycin. PLAN: Await urology input, decrease IV bicarb, Lasix x1. Repeat labs in the a.m. I am not sure why patient is on methotrexate. This may need to be discontinued if the renal failure is new. Again, we do not need to be very aggressive in treating urinary tract infection, patient has ileal conduit for a urostomy.
[2016-06-22 08:21] LABS: Anisocytosis Slight; Basophils % (A) 0 %; CH 32.2; CHCM 34.1; Eosinophils # (A) 0.5 k/uL (0-0.7); Eosinophils % (A) 5 %; HCT 24.4 % (39.0-53.0); HDW 3.98; HGB 8.2 gm/dL (13.0-17.5); Luc # (Auto) 0.07; Luc % (Auto) 1; Lymphocytes # (A) 0.4 k/uL (1.0-4.8); Lymphocytes % (A) 4 %; MCH 31.9 pg (25.0-35.0); MCHC 33.6 g/dL (31.0-37.0); MCV 94.9 fL (80.0-100.0); Mean Platelet Volume 7.3; Monocytes # (A) 0.1 k/uL (0-1.0); Monocytes % (A) 1 %; Neutrophils # (A) 9.3 k/uL (1.3-7.7); Neutrophils % (A) 90 %; Poikilocytosis Slight; RBC 2.57 m/uL (4.30-5.90); WBC 10.4 k/uL (3.8-10.6); WBC (Perox) 11.11
[2016-06-22] MEDS: HEPARIN SODIUM,PORCINE 5,000 UNIT/ML 1 ML VIAL SQ SCH ×2 (08:25→19:51)
[2016-06-22] MEDS: PANTOPRAZOLE 40 MG/10 ML VIAL IVP SCH (08:25)
[2016-06-22] MEDS: ASPIRIN 81 MG CHEW PO SCH (08:25)
[2016-06-22] MEDS: SODIUM BICARBONATE TAB 650 MG TAB PO SCH ×2 (08:25→19:52)
[2016-06-22] MEDS: BISOPROLOL-HCTZ 10-6.25 MG 1 EACH TAB PO SCH (08:25)
[2016-06-22 08:40] LABS: Calcium 8.2 mg/dL (8.4-10.2); Potassium 4.4 mmol/L (3.5-5.1)
--- NOTE | 2016-06-22 10:58 | P.PN ---
Progress Note - Text The patient is afebrile and normotensive. HR is 75. He says he is no longer nauseated and is tolerating a diet. He says he has had no diarrhea since 06/18. He is passing gas but has not had a bowel movement. Urine remains clear. He continues to have a moderate amount of drainage from the Wiley-Bacon drain site in the left abdomen. Creatinine was obtained on this fluid yesterday and was 2.5. This is probably not urine. White blood count today is 10,400. BUN/ creatinine is orally 06/18.87. Bicarb is 22. urine culture grew an enterococcus species and Diana. Physical exam: Abdomen-Urostomy stoma is pink. The abdominal incisions are uninflamed. No focal abdominal pain. Impression: #1 diarrhea with secondary dehydration. This may have been related to the use of antibiotics following his radical cystectomy. Patient said he had been on Bactrim up until 06/16. #2 acute renal failure-most likely related to dehydration. The patient has mild bilateral hydroureteronephrosis on the computed tomography scan but this is a relatively common finding shortly after ileal conduit urinary diversion. #3 positive urine culture-unfortunately this was obtained from the patient's urostomy bag and not from his ileal conduit. The patient has no clinical symptoms of a urinary tract infection and in view of his recent problems with diarrhea I believe that it would be best not to continue antibiotic treatment. Recommendation: #1 discontinue ceftriaxone #2 from my standpoint the patient could be discharged as he is improved. His BUN and creatinine should be rechecked early next week. He'll need to contact Dr. Carter at the [facility] to find out when his next follow- up appointment will be.
[2016-06-22] MEDS: SODIUM FERRIC GLUCONAT-SUCROSE 125 MG in SODIUM CHLORIDE 0.9% 100 ML IVPB SCH (12:14)
--- NOTE | 2016-06-22 13:33 | P.GSCN ---
History of Present Illness Consult date: 06/21/16 History of present illness: The patient is in the hospital with dehydration, uti and hydronephrosis. He is sp robotic cystectomy at the [facility] for bladder cacner The path was confined. He is having intermittent diarrhea and constipation He had a ct scan showing mild bilateral hydro which is normal post op. He had a llq marcela drain that is still drain clear yellow fluid. He is experiencing the usual post op appliance issues. Review of Systems - Constitutional Reports malaise, Reports weight loss - Gastrointestinal Reports abdominal pain, Reports constipation, Reports diarrhea - Genitourinary Reports as per HPI Past Medical History Additional Past Medical History / Comment(s): bladder CA History of Any Multi-Drug Resistant Organisms: MRSA Year Discovered:: 2009 MDRO Source:: blood Past Surgical History: Coronary Bypass/CABG Additional Past Surgical History / Comment(s): urectomy/urostomy Past Psychological History: No Psychological Hx Reported Smoking Status: Never smoker Past Alcohol Use History: None Reported Past Drug Use History: None Reported - Past Family History Mother Family Medical History: Hypertension Medications and Allergies Home Medications Medication Instructions Recorded Confirmed Type Aspirin 81 mg PO DAILY 06/17/16 06/17/16 History Bisoprolol-Hctz 10-6.25 mg [Ziac 1 tab PO DAILY 06/17/16 06/17/16 History 10-6.25] Budesonide-Formot 160-4.5 Mcg 2 puff INHALATION RT-BID PRN 06/17/16 06/17/16 History [Symbicort 160-4.5 Mcg Inhaler] Docusate [Colace] 100 mg PO BID PRN 06/17/16 06/17/16 History Methotrexate Sodium [Methotrexate] 15 mg PO GENAO 06/17/16 06/17/16 History Rosuvastatin Calcium [Crestor] 20 mg PO HS 06/17/16 06/17/16 History oxyCODONE HCL [Roxicodone] 5 mg PO Q6H PRN 06/17/16 06/17/16 History oxyCODONE HCL [Roxicodone] 10 mg PO Q6H PRN 06/17/16 06/17/16 History Allergies Allergy/AdvReac Type Severity Reaction Status Date / Time No Known Allergies Allergy Verified 06/17/16 20:48 Surgical - Exam Vital Signs Temp Pulse Resp BP Pulse Ox 98.6 F 107 H 18 132/60 98 06/17/16 19:53 06/17/16 19:53 06/17/16 19:53 06/17/16 19:53 06/17/16 19:53 - General well developed, well nourished, obese - ENT no hearing loss - Neck trachea midline - Respiratory normal expansion, normal respiratory effort - Cardiovascular Rhythm: regular - Abdomen rlq ileal loop, pink. llq bag covering previous marcela site, clear yellow fluid - Genitourinary normal penis with no external lesions, testicles present - Neurologic normal coordination, normal sensation - Musculoskeletal normal gait, normal posture - Psychiatric oriented to time, oriented to person, oriented to place, speech is normal, memory intact Results - Labs 06/22/16 08:00 06/22/16 08:00 Abnormal Lab Results - Last 24 Hours (Table) 06/22/16 06/22/16 Range/Units 08:00 08:00 RBC 2.57 L (4.30-5.90) m/uL Hgb 8.2 L (13.0-17.5) gm/dL Hct 24.4 L (39.0-53.0) % RDW 17.0 H (11.5-15.5) % Neutrophils # 9.3 H (1.3-7.7) k/uL Lymphocytes # 0.4 L (1.0-4.8) k/uL Sodium 132 L (137-145) mmol/L BUN 44 H (9-20) mg/dL Creatinine 1.87 H (0.66-1.25) mg/dL Glucose 144 H (74-99) mg/dL Calcium 8.2 L (8.4-10.2) mg/dL Diabetes panel 06/22/16 Range/Units 08:00 Sodium 132 L (137-145) mmol/L Potassium 4.4 (3.5-5.1) mmol/L Chloride 99 (98-107) mmol/L Carbon Dioxide 22 (22-30) mmol/L BUN 44 H (9-20) mg/dL Creatinine 1.87 H (0.66-1.25) mg/dL Glucose 144 H (74-99) mg/dL Calcium 8.2 L (8.4-10.2) mg/dL Calcium panel 06/22/16 Range/Units 08:00 Calcium 8.2 L (8.4-10.2) mg/dL Pituitary panel 06/22/16 Range/Units 08:00 Sodium 132 L (137-145) mmol/L Potassium 4.4 (3.5-5.1) mmol/L Chloride 99 (98-107) mmol/L Carbon Dioxide 22 (22-30) mmol/L BUN 44 H (9-20) mg/dL Creatinine 1.87 H (0.66-1.25) mg/dL Glucose 144 H (74-99) mg/dL Calcium 8.2 L (8.4-10.2) mg/dL Adrenal panel 06/22/16 Range/Units 08:00 Sodium 132 L (137-145) mmol/L Potassium 4.4 (3.5-5.1) mmol/L Chloride 99 (98-107) mmol/L Carbon Dioxide 22 (22-30) mmol/L BUN 44 H (9-20) mg/dL Creatinine 1.87 H (0.66-1.25) mg/dL Glucose 144 H (74-99) mg/dL Calcium 8.2 L (8.4-10.2) mg/dL Assessment and Plan Plan: Impression: bladder cacner sp cystectomy with ileal loop. Constipation and dehydration with secndary electrolyte abnormalities. Mild post op bilateral hydro[expected] Plan. I will notify Dr Vázquez of the admission. The hydro is as expected. I will check creatinine on the drain fluid and urine.
[2016-06-22] MEDS: ATORVASTATIN 40 MG TAB PO SCH (19:51)
[2016-06-23] MEDS ORDERED: PANTOPRAZOLE 40 MG TABLET PO SCH (07:30)
[2016-06-23 08:03] LABS: Calcium 8.4 mg/dL (8.4-10.2); Potassium 4.7 mmol/L (3.5-5.1)
--- NOTE | 2016-06-23 08:06 | P.DS ---
Providers Date of admission: 06/17/16 22:21 Attending physician: Maximilian Conn Consults: 06/18/16 15:47 Consult Physician Routine Consulting Provider: Kai Eden Consult Reason/Comments: arf Do you want consulting provider notified?: Yes 06/21/16 08:34 Consult Physician Routine Consulting Provider: Ab Vázquez Consult Reason/Comments: hydronephrosis Do you want consulting provider notified?: Yes Primary care physician: Maximilian Conn - Discharge Diagnosis(es) (1) UTI (urinary tract infection) Current Visit: Yes Status: Acute (2) Hydronephrosis Current Visit: Yes Status: Acute Hospital Course: The patient is a 58-year-old white male essentially with bladder cancer and history of ileal loop causing hydronephrosis. He is admitted essentially for significant nausea or vomiting. Urology and nephrology been consulted. He is now in stable condition and will be discharged to follow-up at [facility] with Dr. Crater. We'll go ahead and continue bicarbonate as per nephrology. Medicines were reconciled and he is discharged in stable condition to follow-up with me in approximately one week. Patient Condition at Discharge: Fair Plan - Discharge Summary New Discharge Prescriptions: ALPRAZolam [Xanax] 0.25 mg PO TID PRN #90 tab PRN Reason: Anxiety Bisoprolol-Hctz 10-6.25 mg [Ziac 10-6.25 MG] 1 each PO DAILY #30 tab Sodium Bicarbonate Tab 1,300 mg PO BID #60 tab Discharge Medication List Aspirin 81 mg PO DAILY 06/17/16 [History] Bisoprolol-Hctz 10-6.25 mg [Ziac 10-6.25 MG] 1 tab PO DAILY 06/17/16 [History] Budesonide-Formot 160-4.5 Mcg [Symbicort 160-4.5 Mcg Inhaler] 2 puff INHALATION RT-BID PRN 06/17/16 [History] Docusate [Colace] 100 mg PO BID PRN 06/17/16 [History] Methotrexate Sodium [Methotrexate] 15 mg PO GENAO 06/17/16 [History] Rosuvastatin Calcium [Crestor] 20 mg PO HS 06/17/16 [History] oxyCODONE HCL [Roxicodone] 5 mg PO Q6H PRN 06/17/16 [History] oxyCODONE HCL [Roxicodone] 10 mg PO Q6H PRN 06/17/16 [History] ALPRAZolam [Xanax] 0.25 mg PO TID PRN #90 tab 06/23/16 [Rx] Aspirin 81 mg PO DAILY chew 06/23/16 [Rx] Bisoprolol-Hctz 10-6.25 mg [Ziac 10-6.25 MG] 1 each PO DAILY #30 tab 06/23/16 [ Rx] Methotrexate Sodium [Methotrexate] 15 mg PO Q7D tab 06/23/16 [Rx] Sodium Bicarbonate Tab 1,300 mg PO BID #60 tab 06/23/16 [Rx] Follow up Appointment(s)/Referral(s): Maximilian Conn MD [Primary Care Provider] - 1-2 days [facility] Visiting Nurse, [NON-STAFF] - As Needed
[2016-06-23 08:07] LABS: Anisocytosis Slight; Basophils % (A) 0 %; CH 32.4; CHCM 33.6; Eosinophils # (A) 0.6 k/uL (0-0.7); Eosinophils % (A) 6 %; HDW 3.94; HGB 8.7 gm/dL (13.0-17.5); Luc # (Auto) 0.06; Luc % (Auto) 1; Lymphocytes # (A) 0.5 k/uL (1.0-4.8); Lymphocytes % (A) 5 %; MCH 32.4 pg (25.0-35.0); MCHC 33.4 g/dL (31.0-37.0); MCV 97.1 fL (80.0-100.0); Macrocytosis Slight; Mean Platelet Volume 7.2; Monocytes # (A) 0.1 k/uL (0-1.0); Monocytes % (A) 1 %; Neutrophils # (A) 9.9 k/uL (1.3-7.7); Neutrophils % (A) 88 %; Poikilocytosis Slight; RBC 2.67 m/uL (4.30-5.90); WBC 11.2 k/uL (3.8-10.6); WBC (Perox) 12.11
[2016-06-23] MEDS: BISOPROLOL-HCTZ 10-6.25 MG 1 EACH TAB PO SCH (08:14)
[2016-06-23] MEDS: ASPIRIN 81 MG CHEW PO SCH (08:14)
[2016-06-23] MEDS: HEPARIN SODIUM,PORCINE 5,000 UNIT/ML 1 ML VIAL SQ SCH (08:16)
[2016-06-23 08:46] VITALS: BP 103/58; PULSE 109; TEMP 98.2
[2016-06-23] MEDS: DOCUSATE 100 MG CAP PO PRN (08:52)
[2016-06-23] MEDS: SODIUM BICARBONATE TAB 650 MG TAB PO SCH (08:54)
--- NOTE | 2016-06-23 15:58 | PN ---
Patient is seen for follow-up for acute kidney injury. He is status post intervention at [facility] for bladder cancer with ileal conduit. Patient was noted to have bilateral hydronephrosis on the CAT scan. Urology was consulted and at this time there is no plan for further intervention. Patient is asked to follow up at [facility] with changes noted on the CT within expected range post operatively. Patient's serum creatinine has improved from 2.8 mg/dL on initial admission to about 1.8 to 1.9 mg/dL now. He has significant lower extremity edema and therefore the fluids were discontinued. Patient is going home today. I will start him on low-dose loop diuretics and he will follow up as outpatient. At this time we do not have any prior labs to establish patient's baseline creatinine. On examination, blood pressure is 103/58, heart rate 109 per minute. He is afebrile. Examination of the heart S1 and S2. Examination of the lungs: Bilateral breath sounds are heard. Abdomen is soft, nontender. Examination of lower extremities shows edema 3+ bilaterally. RPG PROGRAMMER exam is grossly intact. Labs show sodium 130, potassium 4.7, BUN 41, serum creatinine 1.9. Hemoglobin 8.7 g/dL. ASSESSMENT: 1. Acute kidney injury, acute tubular necrosis, currently improved to some degree. Will obtain previous labs from his primary care physician's office, Dr. Conn, as outpatient to establish patient's baseline creatinine. 2. Bilateral hydronephrosis noted on CT scan which is within expected range postoperatively. Patient will follow up with Urology at [facility]. 3. History of bladder cancer, status post urostomy at [facility]. PLAN: Add Lasix 20 mg p.o. daily, follow-up in the office in about one week's time to assess the volume status and follow up with Urology at [facility] as well.
== END 2016-06-23 10:30 | disposition home or self-care (01) | DRG 683 ==
LOC: EC 18:48 → 5ONC 22:21
PROVIDERS: ADMIT Family Medicine; ATTEND Family Medicine
DX: N17.0 Acute kidney failure with tubular necrosis (principal); E44.0 Moderate protein-calorie malnutrition; E87.2 Acidosis; C67.9 Malignant neoplasm of bladder, unspecified; N13.30 Unspecified hydronephrosis; E87.1 Hypo-osmolality and hyponatremia; B37.49 Other urogenital candidiasis; E87.70 Fluid overload, unspecified; B95.2 Enterococcus as the cause of diseases classified elsewhere; E86.0 Dehydration; Z93.6 Other artificial openings of urinary tract status; E66.9 Obesity, unspecified; F41.9 Anxiety disorder, unspecified; I25.10 Atherosclerotic heart disease of native coronary artery without angina pectoris; D64.9 Anemia, unspecified; K59.00 Constipation, unspecified; K52.9 Noninfective gastroenteritis and colitis, unspecified; E61.1 Iron deficiency; D72.829 Elevated white blood cell count, unspecified; R73.09 Other abnormal glucose; R53.1 Weakness; T39.315A Adverse effect of propionic acid derivatives, initial encounter; R91.8 Other nonspecific abnormal finding of lung field; T37.0X5A Adverse effect of sulfonamides, initial encounter; Z95.1 Presence of aortocoronary bypass graft; Z68.36 Body mass index [BMI] 36.0-36.9, adult; Z86.14 Personal history of Methicillin resistant Staphylococcus aureus infection; Z85.46 Personal history of malignant neoplasm of prostate; Z79.891 Long term (current) use of opiate analgesic; Z92.21 Personal history of antineoplastic chemotherapy; Z82.49 Family history of ischemic heart disease and other diseases of the circulatory system; Z79.82 Long term (current) use of aspirin; Z79.899 Other long term (current) drug therapy; Z71.3 Dietary counseling and surveillance; Z90.6 Acquired absence of other parts of urinary tract; Z98.890 Other specified postprocedural states; Z16.11 Resistance to penicillins; Z95.2 Presence of prosthetic heart valve
CPT/HCPCS: 36415; 74176; 80048; 80053; 81001; 82550; 82553; 82570; 82728; 83540; 83550; 83605; 83735; 84100; 84484; 85025; 85027; 85610; 85730; 87077; 87086; 87186; 87324; 96361; 96365; 96375; 99285

== ENCOUNTER 2016-08-23 18:10 | Inpatient (IN) | payer OTHER, BC ==
[2016-08-23] MEDS ORDERED: IPRATROPIUM-ALBUTEROL 3 ML NEB INHALATION STA ×2 (18:15→18:17)
[2016-08-23] MEDS ORDERED: RX INFO: IV CONTRAST WAS GIVEN 1 EACH MISC MISCELLANE PRN (18:17)
[2016-08-23 18:26] LABS: Glucose,Whole Blood 239 mg/dL (75-99)
[2016-08-23] MEDS ORDERED: fentaNYL (PF) 50 MCG/ML 2 ML AMP IV STA (19:00)
[2016-08-23 19:01] LABS: Anisocytosis Moderate; CH 32.3; CHCM 31.2; HCT 20.1 % (39.0-53.0); HDW 4.29; Hypochromasia Marked; MCH 32.5 pg (25.0-35.0); MCHC 31.2 g/dL (31.0-37.0); Macrocytosis Marked; Poikilocytosis Moderate; RBC 1.93 m/uL (4.30-5.90); RDW 20.8 % (11.5-15.5)
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
[2016-08-23 19:02] LABS: WBC 41.9 k/uL (3.8-10.6)
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
[2016-08-23 19:03] LABS: HGB 6.3 gm/dL (13.0-17.5)
[2016-08-23 19:05] LABS: INR 1.2 (<1.1); Partial Thromboplastin Time 23.9 sec (22.0-30.0); Prothrombin Time 12.3 sec (9.0-12.0)
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
[2016-08-23] MEDS ORDERED: ACETAMINOPHEN IV (For NPO) 1,000 MG in EMPTY BAG 1 BAG IVPB ONE (19:15)
[2016-08-23 19:20] LABS: ALT 46 U/L (21-72); AST 73 U/L (17-59); Alcohol <10 mg/dL; Alkaline Phosphatase 180 U/L (38-126); Amylase 32 U/L (30-110); Anion Gap 7 mmol/L; Blood Urea Nitrogen 37 mg/dL (9-20); Calcium 7.9 mg/dL (8.4-10.2); Carbon Dioxide 24 mmol/L (22-30); Chloride 104 mmol/L (98-107); Glucose 281 mg/dL (74-99); Non-African American GFR(MDRD) 45 (>60 ml/min/1.73 sqM); Potassium 5.2 mmol/L (3.5-5.1); Sodium 135 mmol/L (137-145); Total Bilirubin 0.8 mg/dL (0.2-1.3); Total Protein 5.5 g/dL (6.3-8.2)
[2016-08-23] MEDS ORDERED: MIDAZOLAM 2 MG/2 ML VIAL ONE (19:22)
[2016-08-23] MEDS ORDERED: SUCCINYLCHOLINE CHLORIDE VIAL 200 MG/10 ML VIAL IV ONE (19:22)
[2016-08-23] MEDS ORDERED: ETOMIDATE 2 MG/ML 10 ML VIAL ONE (19:22)
[2016-08-23] MEDS ORDERED: fentaNYL (PF) 50 MCG/ML 2 ML AMP ONE (19:22)
[2016-08-23] MEDS ORDERED: SODIUM CHLORIDE 0.9% 1,000 ML IV ONE (19:22)
[2016-08-23] MEDS ORDERED: SODIUM BICARB 8.4% 50 ML SYR (1 MEQ/ML) ONE (19:22)
[2016-08-23] MEDS ORDERED: VECURONIUM 10 MG VIAL IV ONE (19:22)
[2016-08-23] MEDS ORDERED: KETAMINE 10 MG/ML 20 ML VIAL ONE (19:22)
[2016-08-23] MEDS ORDERED: PHENYLEPHRINE-0.9% NACL SYG 1 MG/10 ML SYRINGE ONE (19:22)
[2016-08-23 19:34] LABS: Creatine Kinase MB 11.6 ng/mL (0.0-2.4); Troponin I 0.095 ng/mL (0.000-0.034)
[2016-08-23] MEDS ORDERED: DILTIAZEM 125 MG in SODIUM CHLORIDE 0.9% 100 ML IV ONE (19:44)
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
[2016-08-23 19:54] LABS: Add Differential Manual Differential; Nucleated Red Blood Cells 0 /100 WBC (0-0); Total Cells Counted 100
[2016-08-23 19:55] LABS: Manual Review Performed; Toxic Granulation Present
[2016-08-23] MEDS ORDERED: SODIUM CHLORIDE 0.9% 500 ML IV ONE (20:11)
[2016-08-23] MEDS ORDERED: NALOXONE 0.4 MG/ML 1 ML VIAL IV PRN ×2 (20:18→21:24)
[2016-08-23] MEDS ORDERED: ONDANSETRON 4 MG/2 ML VIAL IVP PRN (20:18)
[2016-08-23] MEDS ORDERED: LACTATED RINGERS 1,000 ML IV ONE (20:18)
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
--- NOTE | 2016-08-23 20:31 | P.OP ---
Date of Procedure: 08/23/16 Preoperative Diagnosis: Hemoperitoneum Postoperative Diagnosis: Hemoperitoneum secondary to mesenteric tear Procedure(s) Performed: Exploratory laparotomy Washout of peritoneal cavity. Insertion of left chest tube Implants: Anesthesia: CALVINA Surgeon: Jon Bills Estimated Blood Loss (ml): 20 Pathology: none sent Condition: critical Disposition: ICU Indications for Procedure: Operative Findings: Description of Procedure: Patient's placed the operative table in the supine position. He had a Cordis and heart line which had been placed in the emergency room. His abdomen was prepped and draped usual fashion. The abdomen was entered through midline incision. The patient had a small amount of hemoperitoneum. Approximately 4 mL of ascitic hemorrhagic fluid was aspirated. The spleen area is packed the liver was packed and then the small bowel was run. There appeared to be several mesenteric tears and a tear in the mesentery of the transverse colon. There is no evidence of any bowel injury. The small bowel was run the colon was run and then in the pelvis there appeared to be some small tears on the peritoneum. The peritoneal area is packed and the bleeding stopped. At this point the spleen was reexamined is no evidence of any significant bleeding from the spleen and no evidence of any significant bleeding from the liver. At this point the abdomen was irrigated again. The fascia is closed loop #1 PDS suture. Skin was closed danial. Next a 28-Syrian chest tube inserted the skin was prepped and draped in usual sterile fashion. Using a 15 blade the skin was incised in the fourth intercostal space in the midaxillary line. Then using a hemostat the thorax was entered. And then using a Ariana clamp the area was spread and then a 20- Syrian chest tube was placed into the left hemithorax approximately 50 mL of serosanguineous fluid was removed the chest tube was secured with 0 Ethibond suture. Patient was sent to the ICU in critical condition.
[2016-08-23 21:09] LABS: Glucose,Whole Blood 179 mg/dL (75-99)
[2016-08-23] MEDS ORDERED: PROPOFOL 50 ML IV ONE (21:13)
[2016-08-23 21:23] LABS: ABG Base Excess -0.5 mmol/L; ABG HCO3 24 mmol/L (21-25); ABG PCO2 37 mmHg (35-45); ABG PH 7.42 (7.35-7.45); ABG PO2 151 mmHg (83-108); ABG TCO2 25 mmol/L (19-24)
[2016-08-23] MEDS: PROPOFOL 500 MG in EMPTY BAG 1 BAG IV SCH ×2 (21:30→23:35)
--- NOTE | 2016-08-23 21:37 | XR ---
EXAMINATION TYPE: XR chest 1V portable DATE OF EXAM: 08/23/2016 COMPARISON: Today HISTORY: Postop TECHNIQUE: Single frontal view of the chest is obtained. FINDINGS: Endotracheal tube is in fairly good position. There is a nasogastric tube. There is right jugular catheter with the tip probably in the superior vena cava. There is a left chest tube. There i s patchy infiltrate in the left mid and lower lung field. IMPRESSION: Left-sided pneumonic infiltrate is similar to last exam at 7:00 PM. No pneumothorax. Rig ht jugular catheter appears in good position.
[2016-08-23 21:53] LABS: Calcium 7.3 mg/dL (8.4-10.2); Magnesium 1.8 mg/dL (1.6-2.3); Phosphorous 4.3 mg/dL (2.5-4.5); Potassium 4.5 mmol/L (3.5-5.1); Total Bilirubin 1.8 mg/dL (0.2-1.3); Total Protein 4.9 g/dL (6.3-8.2)
[2016-08-23 21:55] LABS: Anisocytosis Moderate; Basophils # (A) 0.1 k/uL (0-0.2); Basophils % (A) 0 %; CH 30.9; CHCM 33.6; Eosinophils # (A) 0.2 k/uL (0-0.7); Eosinophils % (A) 1 %; HCT 26.4 % (39.0-53.0); HDW 4.12; Hypochromasia Slight; Luc # (Auto) 0.23; Luc % (Auto) 1; Lymphocytes # (A) 0.5 k/uL (1.0-4.8); Lymphocytes % (A) 2 %; MCH 30.3 pg (25.0-35.0); MCHC 32.6 g/dL (31.0-37.0); Macrocytosis Slight; Mean Platelet Volume 7.1; Monocytes # (A) 1.3 k/uL (0-1.0); Monocytes % (A) 4 %; Neutrophils # (A) 30.1 k/uL (1.3-7.7); Neutrophils % (A) 93 %; Poikilocytosis Moderate; RBC 2.84 m/uL (4.30-5.90); RDW 20.3 % (11.5-15.5); WBC (Perox) 33.86
[2016-08-23 21:56] LABS: Fibrinogen 384 mg/dL (200-500); INR 1.3 (<1.1); Partial Thromboplastin Time 24.2 sec (22.0-30.0)
[2016-08-23 21:57] LABS: HGB 8.6 gm/dL (13.0-17.5)
[2016-08-23 21:59] LABS: WBC 32.4 k/uL (3.8-10.6)
[2016-08-23] MEDS: DILTIAZEM 125 MG in SODIUM CHLORIDE 0.9% 100 ML IV SCH (22:00)
[2016-08-23] MEDS ORDERED: SODIUM CHLORIDE 0.9% 2,000 ML IV ONE (22:00)
[2016-08-23 22:21] LABS: Manual Review Performed; Toxic Granulation Present
[2016-08-23] MEDS: IPRATROPIUM-ALBUTEROL 3 ML NEB INHALATION SCH (23:14)
[2016-08-23 23:31] LABS: MCV 104.3 fL (80.0-100.0)
[2016-08-24] MEDS: PIPERACILLIN-TAZOBACTAM 3.375 GM in DEXTROSE/WATER 1 50ML.BAG IVPB SCH ×3 (00:37→16:09)
[2016-08-24] MEDS: PROPOFOL 500 MG in EMPTY BAG 1 BAG IV SCH ×8 (01:59→19:12)
[2016-08-24] MEDS: NOREPINEPHRIN 16 MG-0.9%NS PMX 16 MG/250 ML ML IV SCH (02:00)
[2016-08-24] MEDS: IPRATROPIUM-ALBUTEROL 3 ML NEB INHALATION SCH ×5 (03:40→19:15)
[2016-08-24 04:54] LABS: ABG Base Excess -3.7 mmol/L; ABG HCO3 20 mmol/L (21-25); ABG PCO2 34 mmHg (35-45); ABG PH 7.39 (7.35-7.45); ABG PO2 84 mmHg (83-108); ABG TCO2 22 mmol/L (19-24)
[2016-08-24 05:31] LABS: Anisocytosis Moderate; Basophils # (A) 0.1 k/uL (0-0.2); Basophils % (A) 0 %; CH 30.9; CHCM 33.7; Eosinophils # (A) 0.3 k/uL (0-0.7); Eosinophils % (A) 1 %; HCT 23.7 % (39.0-53.0); HDW 4.58; HGB 7.7 gm/dL (13.0-17.5); Hypochromasia Slight; Luc # (Auto) 0.21; Luc % (Auto) 1; Lymphocytes # (A) 0.9 k/uL (1.0-4.8); Lymphocytes % (A) 4 %; MCH 30.3 pg (25.0-35.0); MCHC 32.5 g/dL (31.0-37.0); MCV 93.1 fL (80.0-100.0); Macrocytosis Slight; Mean Platelet Volume 6.8; Monocytes # (A) 1.2 k/uL (0-1.0); Monocytes % (A) 5 %; Neutrophils % (A) 89 %; Poikilocytosis Moderate; RBC 2.54 m/uL (4.30-5.90); RDW 21.3 % (11.5-15.5); WBC 24.6 k/uL (3.8-10.6); WBC (Perox) 24.45
[2016-08-24 05:35] LABS: Calcium 6.9 mg/dL (8.4-10.2); Magnesium 1.6 mg/dL (1.6-2.3); Phosphorous 4.2 mg/dL (2.5-4.5); Total Bilirubin 1.4 mg/dL (0.2-1.3); Total Protein 4.4 g/dL (6.3-8.2)
[2016-08-24] MEDS: MAGNESIUM SULFATE-D5W PMX 1 GM in DEXTROSE/WATER 1 100ML.BAG IVPB SCH ×2 (06:47→09:01)
[2016-08-24 06:59] LABS: INR 1.3 (<1.1); Partial Thromboplastin Time 25.4 sec (22.0-30.0); Prothrombin Time 12.5 sec (9.0-12.0)
--- NOTE | 2016-08-24 07:31 | XR ---
EXAMINATION TYPE: XR chest 1V portable DATE OF EXAM: 08/24/2016 HISTORY: Tube placement. REFERENCE: Previous study dated 08/23/2016. FINDINGS: There has been a previous midline sternotomy. The patient is ET tube, NG tube and right internal jugular catheter remain in place, unchanged in paloma earance. There is a left pleural drain in place. A second radiopaque marker projects over the left ch est. This is also unchanged. There continues to be consolidation behind the heart. This may have worsened slightly. The consolidat ion in the left midlung has improved. There are bilateral effusions, greater on the left than the rig ht. The heart is mildly enlarged. IMPRESSION: 1. MILD CARDIOMEGALY. 2. WAXING AND WANING PULMONARY INFILTRATES. 3. SMALL, BILATERAL EFFUSIONS, GREATER ON THE LEFT THAN THE RIGHT.
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
[2016-08-24] MEDS ORDERED: SODIUM CHLORIDE 0.9% 1,000 ML IV ONE ×2 (08:34→14:10)
[2016-08-24] MEDS: CHLORHEXIDINE GLUCONATE 15 ML CUP MUCOUS MEM SCH ×2 (09:01→21:56)
[2016-08-24] MEDS: PANTOPRAZOLE 40 MG/10 ML VIAL IV SCH (09:01)
--- NOTE | 2016-08-24 09:06 | XR ---
EXAMINATION TYPE: XR chest 1V portable DATE OF EXAM: 08/24/2016 COMPARISON: 08/24/2016 HISTORY: SOB, Follow Up FINDINGS: Indwelling tubes and catheters are unchanged. No change in bibasilar opacities. Left-sided pleural-parenchymal opacity. Left-sided chest tube with out sizable pneumothorax. A second radiopaque marker is noted overlying the left chest. Stable appearance of the cardio-mediastinal structures at this time. Pleural effusion unchanged. IMPRESSION: 1. Stable portable chest. Clinical correlation and follow up until resolution is recommended.
--- NOTE | 2016-08-24 09:12 | XR ---
EXAMINATION TYPE: XR chest 1V portable DATE OF EXAM: 08/24/2016 COMPARISON: Prior chest x-ray same date at earlier time HISTORY: Chest tube placement TECHNIQUE: Single frontal view of the chest is obtained. FINDINGS: There is been interval repositioning of the left-sided chest tube. Pleural parenchymal dieter nges are not significantly changed. Central venous catheter, endotracheal tube, NG tube are again not ed. Patient is post median sternotomy and rotated. IMPRESSION: Interval chest tube reposition
--- NOTE | 2016-08-24 09:14 | XR ---
EXAMINATION TYPE: XR chest 1V portable DATE OF EXAM: 08/24/2016 COMPARISON: Prior chest x-ray from same date earlier time HISTORY: Chest tube are positioned TECHNIQUE: Single frontal view of the chest is obtained. FINDINGS: There is been interval repositioning of the left-sided chest tube. Pleural parenchymal dieter nges are stable. Endotracheal tube, NG tube, right jugular central venous catheter are again noted. P atient is rotated and post median sternotomy. The heart is enlarged. IMPRESSION: Interval chest tube repositioning
--- NOTE | 2016-08-24 09:15 | XR ---
EXAMINATION TYPE: XR chest 1V portable DATE OF EXAM: 08/24/2016 COMPARISON: Prior chest x-ray of same date earlier time HISTORY: Chest tube reposition TECHNIQUE: Single frontal view of the chest is obtained. FINDINGS: There is been interval repositioning of the left-sided chest tube. Endotracheal tube, NG t ube, right jugular central venous catheter are stable. Pleural parenchymal changes not significantly changed. There are overlying cardiac leads. Patient is rotated. Heart is enlarged and the patient is post median sternotomy. IMPRESSION: Interval repositioning chest tube.
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
[2016-08-24] MEDS: SODIUM CHLORIDE 0.9% 1,000 ML IV SCH ×2 (10:11→18:08)
--- NOTE | 2016-08-24 10:55 | ECHOF ---
Referral Reason:shock MEASUREMENTS -------- HEIGHT: 170.2 cm WEIGHT: 99.8 kg BP: 108/45 IVSd: 1.6 cm (0.6 - 1.1) LVIDd: 4.1 cm (3.9 - 5.3) LVPWd: 1.6 cm (0.6 - 1.1) IVSs: 1.4 cm LVIDs: 2.8 cm LVPWs: 1.7 cm LAESV Index (A-L): 29.29 ml/m AV maxP.86 mmHg AV meanP.85 mmHg RAP: 15.00 mmHg RVSP: 26.63 mmHg FINDINGS -------- Atrial fibrillation. This was a technically difficult study with suboptimal views. Ejection fraction difficult to estimate due to cardiac arrhythmia. There is moderate concentric left ventricular hypertrophy. Overall left ventricular systolic function is normal with, an EF between 65 - 70 %. The right ventricle is normal in size and function. LA is midly dilated 29-33ml/m2. The right atrium was not well visualized. 1.5mg of Definity was utilized for enhancement of images There is no evidence of aortic regurgitation. Mild aortic stenosis with peak/mean pressure gradient of 29.86mmHg / 18.85mmHg , the aortic valve area by continuity equation is 1.7cm. Possible prosthetic aortic valve. Pressures would be physiologically normal in the presence of a prosthesis. Moderate mitral annular calcification present. There is trace to mild mitral regurgitation. Trace tricuspid regurgitation present. There is no evidence of pulmonary hypertension. The right ventricular systolic pressure, as measured by Doppler, is 26.63mmHg. The pulmonic valve was not well visualized. The aortic root size is normal. The inferior vena cava is dilated with no significant inspiratory collapse which is consistent estimated right atrial pressure of >20 mmHg. There is no pericardial effusion. CONCLUSIONS -------- 1. Atrial fibrillation. 2. Mild aortic stenosis with peak/mean pressure gradient of 29.86mmHg / 18.85mmHg , the aortic valve area by continuity equation is 1.7cm. Pressures would be physiologically normal in the presence of a prosthesis. 3. Possible prosthetic aortic valve. 4. Moderate mitral annular calcification present. 5. There is trace to mild mitral regurgitation. 6. Trace tricuspid regurgitation present. 7. There is no evidence of pulmonary hypertension. 8. The right ventricular systolic pressure, as measured by Doppler, is 26.63mmHg. 9. The pulmonic valve was not well visualized. 10. The aortic root size is normal. 11. The inferior vena cava is dilated with no significant inspiratory collapse which is consistent estimated right atrial pressure of >20 mmHg. 12. This was a technically difficult study with suboptimal views. 13. There is no pericardial effusion. 14. Ejection fraction difficult to estimate due to cardiac arrhythmia. 15. There is moderate concentric left ventricular hypertrophy. 16. Overall left ventricular systolic function is normal with, an EF between 65 - 70 %. 17. LA is midly dilated 29-33ml/m2. 18. The right atrium was not well visualized. 19. 1.5mg of Definity was utilized for enhancement of images 20. There is no evidence of aortic regurgitation. PAINTER ORDNANCE: Heron Stahl RDCS
[2016-08-24] MEDS: HYDROmorphone 1 MG/ML 1 ML SYRINGE IVP PRN (11:00)
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
[2016-08-24] MEDS: DILTIAZEM 125 MG in SODIUM CHLORIDE 0.9% 100 ML IV SCH (13:50)
[2016-08-24] MEDS ORDERED: FUROSEMIDE 10 MG/ML 4 ML VIAL IV STA (17:21)
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
[2016-08-25] MEDS: IPRATROPIUM-ALBUTEROL 3 ML NEB INHALATION SCH ×7 (00:03→23:29)
[2016-08-25] MEDS: PIPERACILLIN-TAZOBACTAM 3.375 GM in DEXTROSE/WATER 1 50ML.BAG IVPB SCH ×3 (00:46→18:03)
[2016-08-25] MEDS: PROPOFOL 500 MG in EMPTY BAG 1 BAG IV SCH ×8 (00:47→22:56)
[2016-08-25] MEDS: SODIUM CHLORIDE 0.9% 1,000 ML IV SCH ×2 (04:20→18:02)
[2016-08-25 04:49] LABS: ABG PH 7.35 (7.35-7.45)
[2016-08-25 04:50] LABS: ABG Base Excess -6.1 mmol/L; ABG HCO3 18 mmol/L (21-25); ABG PCO2 34 mmHg (35-45); ABG PO2 85 mmHg (83-108); ABG TCO2 19 mmol/L (19-24)
[2016-08-25 05:50] LABS: Ionized Calcium 4.3 mg/dL (4.5-5.3)
[2016-08-25 05:58] LABS: Anisocytosis Slight; Basophils % (A) 0 %; CH 30.2; CHCM 33.3; Eosinophils # (A) 0.5 k/uL (0-0.7); Eosinophils % (A) 3 %; HCT 20.8 % (39.0-53.0); HDW 4.25; Hypochromasia Slight; Luc % (Auto) 1; Lymphocytes # (A) 0.2 k/uL (1.0-4.8); Lymphocytes % (A) 1 %; MCH 30.2 pg (25.0-35.0); MCHC 32.8 g/dL (31.0-37.0); MCV 91.9 fL (80.0-100.0); Macrocytosis Slight; Mean Platelet Volume 7.1; Monocytes # (A) 0.7 k/uL (0-1.0); Monocytes % (A) 4 %; Neutrophils # (A) 17.7 k/uL (1.3-7.7); Neutrophils % (A) 92 %; Poikilocytosis Moderate; RBC 2.26 m/uL (4.30-5.90); RDW 19.6 % (11.5-15.5); WBC 19.2 k/uL (3.8-10.6); WBC (Perox) 19.86
[2016-08-25 06:02] LABS: INR 1.2 (<1.1); Prothrombin Time 12.3 sec (9.0-12.0)
[2016-08-25 06:03] LABS: HGB 6.8 gm/dL (13.0-17.5)
[2016-08-25 06:07] LABS: Calcium 6.6 mg/dL (8.4-10.2); Magnesium 1.9 mg/dL (1.6-2.3); Phosphorous 4.9 mg/dL (2.5-4.5); Potassium 5.1 mmol/L (3.5-5.1); Total Bilirubin 1.3 mg/dL (0.2-1.3); Total Protein 4.1 g/dL (6.3-8.2)
--- NOTE | 2016-08-25 07:37 | XR ---
EXAMINATION TYPE: XR chest 1V portable DATE OF EXAM: 08/25/2016 COMPARISON: Prior exam dated 08/24/2016 HISTORY: Intubated TECHNIQUE: Single frontal view of the chest is obtained. FINDINGS: Endotracheal tube, NG tube, right jugular central venous catheter, left chest tube are ove rlying appropriate positions. No pneumothorax or sizable effusion. There is improved aeration on the left. Cardiomediastinal silhouette, pulmonary vascularity and chadd felt to be stable. Patient is post median sternotomy. There are overlying cardiac leads. IMPRESSION: There is some improvement in aeration in the left lung.
[2016-08-25] MEDS: CHLORHEXIDINE GLUCONATE 15 ML CUP MUCOUS MEM SCH ×2 (08:08→21:32)
[2016-08-25] MEDS: PANTOPRAZOLE 40 MG/10 ML VIAL IV SCH (08:09)
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
[2016-08-25] MEDS ORDERED: SODIUM BICARB 8.4% 50 ML SYR (1 MEQ/ML) IV ONE ×2 (13:15→14:30)
[2016-08-25] MEDS: DILTIAZEM 125 MG in SODIUM CHLORIDE 0.9% 100 ML IV SCH ×2 (13:47→22:27)
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
[2016-08-25 14:14] LABS: Anisocytosis Slight; CH 30.7; CHCM 33.7; HCT 27.9 % (39.0-53.0); Hypochromasia Slight; MCH 29.7 pg (25.0-35.0); MCHC 32.2 g/dL (31.0-37.0); MCV 92.3 fL (80.0-100.0); Macrocytosis Slight; Mean Platelet Volume 7.5; Poikilocytosis Moderate; RBC 3.03 m/uL (4.30-5.90); RDW 19.3 % (11.5-15.5); WBC 24.1 k/uL (3.8-10.6)
[2016-08-25 14:31] LABS: Potassium 5.2 mmol/L (3.5-5.1)
[2016-08-25 17:29] LABS: Appearance,Urine Turbid (Clear); Bilirubin,Urine Negative (Negative); Glucose,Urine (UA) Negative (Negative); Ketones,Urine Negative (Negative); Leukocyte Esterase,Urine Large (Negative); Nitrite,Urine Negative (Negative); PH, Urine 6.5 (5.0-8.0); Particle Count 25098; Protein,Urine 1+ (Negative); RBC,Urine 121 /hpf (0-5); Specific Gravity,Urine 1.029 (1.001-1.035); UA Billing (MACRO vs. MICRO) MICRO; Urobilinogen,Urine <2.0 mg/dL (<2.0); WBC,Urine >182 /hpf (0-5)
[2016-08-25] MEDS ORDERED: FUROSEMIDE 10 MG/ML 10 ML VIAL IV STA (17:58)
[2016-08-25] MEDS: HYDROmorphone 1 MG/ML 1 ML SYRINGE IVP PRN (18:30)
[2016-08-25] MEDS: SODIUM BICARBONATE TAB 650 MG TAB PO SCH (21:32)
[2016-08-26] MEDS: PIPERACILLIN-TAZOBACTAM 3.375 GM in DEXTROSE/WATER 1 50ML.BAG IVPB SCH ×3 (00:25→18:16)
[2016-08-26] MEDS: IPRATROPIUM-ALBUTEROL 3 ML NEB INHALATION SCH ×6 (03:15→23:12)
[2016-08-26] MEDS: PROPOFOL 500 MG in EMPTY BAG 1 BAG IV SCH ×7 (03:16→22:08)
[2016-08-26 04:24] LABS: Calcium 7.1 mg/dL (8.4-10.2); Magnesium 2.1 mg/dL (1.6-2.3); Phosphorous 6.2 mg/dL (2.5-4.5); Potassium 4.9 mmol/L (3.5-5.1)
[2016-08-26 04:37] LABS: Anisocytosis Slight; CH 30.2; CHCM 33.4; HCT 27.8 % (39.0-53.0); HDW 4.34; HGB 9.3 gm/dL (13.0-17.5); Hypochromasia Slight; MCH 30.6 pg (25.0-35.0); MCHC 33.4 g/dL (31.0-37.0); MCV 91.5 fL (80.0-100.0); Mean Platelet Volume 7.4; Poikilocytosis Moderate; RBC 3.04 m/uL (4.30-5.90); RDW 19.2 % (11.5-15.5); WBC 22.8 k/uL (3.8-10.6); WBC (Perox) 23.56
[2016-08-26 05:18] LABS: Add Differential Manual Differential
[2016-08-26 05:19] LABS: Manual Review Performed; Nucleated Red Blood Cells 0 /100 WBC (0-0); Total Cells Counted 100
[2016-08-26 05:20] LABS: Polychromasia Present
[2016-08-26 05:46] LABS: ABG Base Excess -6.2 mmol/L; ABG HCO3 18 mmol/L (21-25); ABG PCO2 35 mmHg (35-45); ABG PH 7.35 (7.35-7.45); ABG PO2 91 mmHg (83-108); ABG TCO2 20 mmol/L (19-24)
[2016-08-26] MEDS: SODIUM CHLORIDE 0.9% 1,000 ML IV SCH ×3 (06:58→13:29)
--- NOTE | 2016-08-26 07:05 | XR ---
EXAMINATION TYPE: XR chest 1V portable DATE OF EXAM: 08/26/2016 HISTORY: Tube placement. REFERENCE: Previous study dated 08/25/2016. FINDINGS: The patient is ET tube and NG tube remain in place, unchanged in appearance. A left pleural drain is in place. There is been a midline sternotomy. The heart is enlarged. There is left basilar airspace disease. There is a small left effusion. There is vascular congestion. I could not exclude some mild heart failure. IMPRESSION: 1. POSTOPERATIVE CHANGE. 2. WORSENING LEFT BASILAR AIRSPACE DISEASE. 3. I SUSPECT FLUID OVERLOAD WITH MILD EDEMA. 4. SMALL LEFT EFFUSION.
[2016-08-26] MEDS: SODIUM BICARBONATE TAB 650 MG TAB PO SCH ×2 (08:47→20:39)
[2016-08-26] MEDS: PANTOPRAZOLE 40 MG/10 ML VIAL IV SCH (08:47)
[2016-08-26] MEDS: CHLORHEXIDINE GLUCONATE 15 ML CUP MUCOUS MEM SCH ×2 (08:47→20:39)
--- NOTE | 2016-08-26 12:38 | P.PN ---
Progress Note - Text CV Surgery Nursing Principal diagnosis: Hemothorax, hemoperitoneum secondary to mesenteric tear POD: #3, Status post left pleural chest tube placement, left pleural chest tube replaced by Dr. Chaparro on 08/24/2016, exploratory laparotomy performed by Dr. Bills. Patient remains intubated with mechanical ventilator support. He is sedated with propofol drip, he is not following any verbal commands at this time. He does withdraw from noxious stimuli. Vital Signs: Afebrile Vital Signs - 24 hr 08/25/16 08/25/16 08/25/16 08:31 08:58 09:00 Temperature Pulse Rate 121 H 120 H 121 H Respiratory 20 Rate Blood Pressure O2 Sat by Pulse 98 Oximetry 08/25/16 08/25/16 08/25/16 09:19 09:29 09:49 Temperature 99.9 F H 99.3 F 98.9 F Pulse Rate 111 H 121 H 120 H Respiratory 17 18 18 Rate Blood Pressure 85/37 109/42 104/42 O2 Sat by Pulse 100 99 99 Oximetry 08/25/16 08/25/16 08/25/16 10:00 11:00 12:00 Temperature 98.9 F Pulse Rate 120 H 111 H 120 H Respiratory 19 18 18 Rate Blood Pressure O2 Sat by Pulse 100 100 100 Oximetry 08/25/16 08/25/16 08/25/16 12:15 12:46 13:00 Temperature 98.9 F Pulse Rate 111 H 113 H 105 H Respiratory 19 19 Rate Blood Pressure 106/41 O2 Sat by Pulse 100 100 Oximetry 08/25/16 08/25/16 08/25/16 14:00 15:00 15:29 Temperature Pulse Rate 124 H 123 H 113 H Respiratory 18 18 Rate Blood Pressure O2 Sat by Pulse 100 100 Oximetry 08/25/16 08/25/16 08/25/16 15:48 16:00 17:00 Temperature Pulse Rate 112 H 121 H 123 H Respiratory 22 18 Rate Blood Pressure O2 Sat by Pulse 99 97 Oximetry 08/25/16 08/25/16 08/25/16 18:00 19:00 19:35 Temperature Pulse Rate 114 H 112 H 101 H Respiratory 16 16 Rate Blood Pressure O2 Sat by Pulse 99 100 Oximetry 08/25/16 08/25/16 08/25/16 19:59 20:00 21:00 Temperature 97.7 F Pulse Rate 101 H 101 H 107 H Respiratory 16 16 Rate Blood Pressure O2 Sat by Pulse 100 99 Oximetry 08/25/16 08/25/16 08/25/16 22:00 23:00 23:08 Temperature Pulse Rate 101 H 114 H 107 H Respiratory 16 16 16 Rate Blood Pressure O2 Sat by Pulse 97 100 100 Oximetry 08/25/16 08/25/16 08/26/16 23:31 23:41 00:00 Temperature 97.5 F L Pulse Rate 101 H 100 100 Respiratory 16 Rate Blood Pressure O2 Sat by Pulse 94 L Oximetry 08/26/16 08/26/16 08/26/16 01:00 02:00 03:00 Temperature Pulse Rate 100 100 99 Respiratory 16 16 16 Rate Blood Pressure O2 Sat by Pulse 97 98 98 Oximetry 08/26/16 08/26/16 08/26/16 03:10 03:36 04:00 Temperature 97.0 F L Pulse Rate 101 H 99 100 Respiratory 16 Rate Blood Pressure O2 Sat by Pulse 97 Oximetry 08/26/16 08/26/16 08/26/16 05:00 06:00 07:00 Temperature Pulse Rate 99 80 99 Respiratory 16 16 16 Rate Blood Pressure O2 Sat by Pulse 100 96 100 Oximetry 08/26/16 08:02 Temperature Pulse Rate 82 Respiratory Rate Blood Pressure O2 Sat by Pulse Oximetry ABP, PAP, CO, CI - Last 8 Hours Arterial Blood Pressure 108/36 Arterial Blood Pressure 106/45 Arterial Blood Pressure 130/47 Arterial Blood Pressure 133/45 Arterial Blood Pressure 108/41 Arterial Blood Pressure 121/39 Arterial Blood Pressure 123/43 Labs: Short CBC 08/25/16 08/26/16 Range/Units 14:08 04:03 WBC 24.1 H 22.8 H (3.8-10.6) k/uL Hgb 9.0 L D 9.3 L (13.0-17.5) gm/dL Hct 27.9 L 27.8 L (39.0-53.0) % Plt Count 232 237 (150-450) k/uL BMP 08/25/16 08/26/16 14:08 04:03 Sodium 141 139 Potassium 5.2 H 4.9 Chloride 109 H 111 H Carbon Dioxide 25 18 L BUN 53 H Creatinine 3.10 H Glucose 134 H Calcium 7.1 L Urine 08/25/16 Range/Units 17:15 Urine Color Yellow Urine Appearance Turbid (Clear) Urine pH 6.5 (5.0-8.0) Ur Specific [place] 1.029 (1.001-1.035) Urine Protein 1+ H (Negative) Urine Glucose (UA) Negative (Negative) IV Fluids: 0.9% normal saline at 125 mL per hour Propofol drip at 35 mcg/kg/m Cardizem drip at 10 mg per hour. Lungs: Essentially clear throughout, diminished bilateral bases. Respirations are symmetrical and unlabored with mechanical ventilator support. Current ventilator settings are as follows: AC 16, TV 500, FiO2 50%, PEEP 5. O2 sat: 98% on 50% FiO2. Heart: S1S2, regular rhythm and rate, negative for S3, gallop or murmur. Bedside telemetry showing normal sinus rhythm heart rate 89. Abdomen: Soft, distended. Positive bowel sounds present in all 4 quadrants. OG tube in place with vital high-protein infusing at 20 mL per hour. Midline abdominal incision with silver dressing in place, scant serosanguineous drainage noted to his distal dressing. Abdominal binder in place. U/O: Adequate, [place] catheter for accurate I&O. 1050 mL output in the last 8 hours. Chest Tubes: Left pleural chest tube without air leak, remains to continuous low wall suction at -20 cm H2O. No drainage noted in the last 24 hours. 24 hr Total: Intake & Output 08/24/16 08/25/16 08/26/16 08/27/16 06:59 06:59 06:59 06:59 Intake Total 5354.773 6415.986 4501.402 171 Output Total 1315 315 945 60 Balance 4039.773 6100.986 3556.402 111 Weight 99.337 kg 106.8 kg 118.2 kg Active Medications Albuterol/Ipratropium (Duoneb 0.5 Mg-3 Mg/3 Ml Soln) 3 ml INHALATION RT-Q4H [facility] Last Admin: 08/26/16 07:55 Dose: 3 ml Chlorhexidine Gluconate (Peridex) 15 ml MUCOUS MEM BID [facility] Last Admin: 08/25/16 21:32 Dose: 15 ml Hydromorphone HCl (Dilaudid) 1 mg IVP Q3HR PRN PRN Reason: Moderate to Severe Pain Last Admin: 08/25/16 18:30 Dose: 1 mg Diltiazem HCl 125 mg/ Sodium (Chloride) 125 mls @ 5 mls/hr IV .Q24H [facility]AYA; 5 MG/ HR PRN Reason: Protocol Last Admin: 08/25/16 22:27 Dose: 10 mg/hr, 10 mls/hr Norepinephrine Bitartrate (Levophed-0.9% Nacl 16 Mg/250ml Pmx) 16 mg in 250 mls @ 0 mls/hr IV .Q0M [facility]JAYA; Titrate PRN Reason: Protocol Last Titration: 08/24/16 16:20 Dose: 5 mcg/min, 4.688 mls/hr Propofol 500 mg/ IV Solution 50 mls @ 0 mls/hr IV .Q0M VIJAYA; Titrate PRN Reason: Protocol Last Admin: 08/26/16 05:17 Dose: 35 mcg/kg/min, 20.86 mls/hr Piperacillin/Tazobactam/ (Dextrose 3.375 gm/ IV Solution) 50 mls @ 12.5 mls/hr IVPB Q8HR [facility] Last Admin: 08/26/16 00:25 Dose: 12.5 mls/hr Sodium Chloride (Saline 0.9%) 1,000 mls @ 125 mls/hr IV .Q8H [facility] Last Admin: 08/26/16 06:58 Dose: 125 mls/hr Naloxone HCl (Narcan) 0.2 mg IV Q2M PRN PRN Reason: Opioid Reversal Ondansetron HCl (Zofran) 4 mg IVP Q8HR PRN PRN Reason: Nausea And Vomiting Pantoprazole Sodium (Protonix) 40 mg IV DAILY [facility] Last Admin: 08/25/16 08:09 Dose: 40 mg Sodium Bicarbonate (Sodium Bicarbonate Tab) 650 mg PO BID [facility] Last Admin: 08/25/16 21:32 Dose: 650 mg Plan: 1. Pulmonary and ventilator management per Dr. Chaparro's recommendations. 2. Postoperative management per, surgery Dr. Bills. 3. Continue to monitor chest tube output and functionality, we will remove the chest tube later today.
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
[2016-08-26] MEDS: SODIUM CHLORIDE 0.45% 1,000 ML IV SCH (13:27)
[2016-08-26] MEDS: CALCIUM ACETATE 667 MG CAP PO SCH ×2 (13:27→18:17)
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
[2016-08-26] MEDS ORDERED: FUROSEMIDE 10 MG/ML 10 ML VIAL IV ONE (14:00)
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
[2016-08-26 22:05] LABS: Magnesium 2.1 mg/dL (1.6-2.3); Potassium 4.4 mmol/L (3.5-5.1)
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
[2016-08-27] MEDS: PIPERACILLIN-TAZOBACTAM 3.375 GM in DEXTROSE/WATER 1 50ML.BAG IVPB SCH ×4 (00:19→23:28)
[2016-08-27] MEDS: DILTIAZEM 125 MG in SODIUM CHLORIDE 0.9% 100 ML IV SCH ×2 (00:52→17:45)
[2016-08-27] MEDS ORDERED: MORPHINE SULFATE 10 MG/ML SYRINGE ONE (01:33)
[2016-08-27] MEDS: HYDROmorphone 1 MG/ML 1 ML SYRINGE IVP PRN ×2 (01:39→22:08)
[2016-08-27] MEDS: PROPOFOL 500 MG in EMPTY BAG 1 BAG IV SCH ×10 (02:22→22:27)
[2016-08-27] MEDS: IPRATROPIUM-ALBUTEROL 3 ML NEB INHALATION SCH ×6 (03:07→23:07)
[2016-08-27] MEDS: SODIUM CHLORIDE 0.45% 1,000 ML IV SCH ×2 (03:49→12:53)
[2016-08-27 04:05] LABS: Anisocytosis Slight; Basophils % (A) 0 %; CH 30.1; CHCM 32.9; Eosinophils # (A) 1.1 k/uL (0-0.7); Eosinophils % (A) 6 %; HCT 28.8 % (39.0-53.0); HDW 4.29; HGB 9.3 gm/dL (13.0-17.5); Hypochromasia Slight; Luc # (Auto) 0.26; Luc % (Auto) 1; Lymphocytes # (A) 0.3 k/uL (1.0-4.8); Lymphocytes % (A) 1 %; MCH 29.8 pg (25.0-35.0); MCHC 32.1 g/dL (31.0-37.0); MCV 92.8 fL (80.0-100.0); Macrocytosis Slight; Mean Platelet Volume 7.1; Monocytes # (A) 0.6 k/uL (0-1.0); Monocytes % (A) 3 %; Neutrophils # (A) 17.9 k/uL (1.3-7.7); Neutrophils % (A) 89 %; Poikilocytosis Moderate; RDW 19.5 % (11.5-15.5); WBC 20.2 k/uL (3.8-10.6); WBC (Perox) 20.94
[2016-08-27 04:08] LABS: Calcium 7.3 mg/dL (8.4-10.2); Magnesium 2.2 mg/dL (1.6-2.3); Phosphorous 6.9 mg/dL (2.5-4.5); Potassium 4.5 mmol/L (3.5-5.1)
[2016-08-27 04:55] LABS: ABG Base Excess -6.7 mmol/L; ABG HCO3 18 mmol/L (21-25); ABG PCO2 36 mmHg (35-45); ABG PH 7.32 (7.35-7.45); ABG PO2 76 mmHg (83-108); ABG TCO2 19 mmol/L (19-24)
--- NOTE | 2016-08-27 07:57 | XR ---
EXAMINATION TYPE: XR chest 1V portable DATE OF EXAM: 08/27/2016 CLINICAL HISTORY: Difficulty breathing progress study. TECHNIQUE: Single AP portable semiupright view of the chest is obtained. COMPARISON: Chest x-ray from one day earlier FINDINGS: An endotracheal tube, orogastric tube, and right-sided internal jugular central venous cat heter are all stable in appearance. Sternal wires and metallic aortic valve are all redemonstrated. T here is interval removal of left-sided chest tube. There is suspected small left pleural fluid collec tion or nonsimple effusion with peripheral lateral opacity remaining present. There is left lower maryan g infiltrate and/or atelectasis. Small right pleural effusion is suspected. No sizable pneumothorax i s seen. Visualized osseous structures are intact. IMPRESSION: Interval removal of left-sided chest tube, no sizable pneumothorax is evident. There are persistent small bilateral pleural effusions or fluid collections suspected nonsimple on the left wit h associated left lower lung infiltrate and/or atelectasis redemonstrated.
[2016-08-27] MEDS ORDERED: FUROSEMIDE 10 MG/ML 10 ML VIAL IV SCH (09:00)
[2016-08-27] MEDS: CHLORHEXIDINE GLUCONATE 15 ML CUP MUCOUS MEM SCH ×2 (09:22→21:01)
[2016-08-27] MEDS: SODIUM BICARBONATE TAB 650 MG TAB PO SCH ×2 (09:24→21:02)
[2016-08-27] MEDS: PANTOPRAZOLE 40 MG/10 ML VIAL IV SCH (09:24)
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
[2016-08-27] MEDS: FUROSEMIDE 250 MG in SODIUM CHLORIDE 0.9% 225 ML IVP SCH (11:11)
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
[2016-08-27] MEDS: CALCIUM ACETATE 667 MG CAP PO SCH (16:54)
[2016-08-28] MEDS: PROPOFOL 500 MG in EMPTY BAG 1 BAG IV SCH ×11 (00:40→21:31)
[2016-08-28] MEDS: IPRATROPIUM-ALBUTEROL 3 ML NEB INHALATION SCH ×6 (03:10→23:03)
[2016-08-28 03:50] LABS: Anisocytosis Slight; Basophils # (A) 0.1 k/uL (0-0.2); Basophils % (A) 0 %; CH 29.8; CHCM 31.7; Eosinophils # (A) 0.8 k/uL (0-0.7); Eosinophils % (A) 5 %; HCT 29.9 % (39.0-53.0); HDW 3.94; HGB 9.4 gm/dL (13.0-17.5); Hypochromasia Moderate; Luc # (Auto) 0.21; Luc % (Auto) 1; Lymphocytes # (A) 0.4 k/uL (1.0-4.8); Lymphocytes % (A) 3 %; MCH 29.9 pg (25.0-35.0); MCHC 31.4 g/dL (31.0-37.0); MCV 95.1 fL (80.0-100.0); Macrocytosis Slight; Mean Platelet Volume 8.1; Monocytes # (A) 0.4 k/uL (0-1.0); Monocytes % (A) 3 %; Neutrophils # (A) 14.3 k/uL (1.3-7.7); Neutrophils % (A) 88 %; Poikilocytosis Slight; RBC 3.14 m/uL (4.30-5.90); RDW 18.8 % (11.5-15.5); WBC 16.2 k/uL (3.8-10.6); WBC (Perox) 16.38
[2016-08-28 04:06] LABS: Calcium 7.4 mg/dL (8.4-10.2); Magnesium 2.2 mg/dL (1.6-2.3); Phosphorous 7.5 mg/dL (2.5-4.5); Potassium 4.4 mmol/L (3.5-5.1)
[2016-08-28 04:59] LABS: ABG Base Excess -7.4 mmol/L; ABG HCO3 17 mmol/L (21-25); ABG PCO2 31 mmHg (35-45); ABG PH 7.36 (7.35-7.45); ABG PO2 74 mmHg (83-108); ABG TCO2 18 mmol/L (19-24)
--- NOTE | 2016-08-28 07:37 | XR ---
EXAMINATION TYPE: XR chest 1V portable DATE OF EXAM: 08/28/2016 CLINICAL HISTORY: Difficulty breathing progress study. TECHNIQUE: Single AP portable semiupright view of the chest is obtained. COMPARISON: Chest x-ray from one day earlier FINDINGS: An endotracheal tube, orogastric tube, and right-sided internal jugular central venous cat heter are all stable in appearance. Sternal wires and metallic aortic valve are all redemonstrated. T here is suspected small left pleural fluid collection or nonsimple effusion with peripheral lateral o pacity remaining present. There is left lower lung infiltrate and/or atelectasis redemonstrated. Smal l right pleural effusion is stable. There is associated right basilar atelectasis and/or infiltrate N o sizable pneumothorax is seen bilaterally. Visualized osseous structures are intact. IMPRESSION: Overall stable findings, cardiomegaly with small bilateral pleural effusions and associ ated left greater than right lower lung infiltrate and/or atelectasis.
[2016-08-28] MEDS: PANTOPRAZOLE 40 MG/10 ML VIAL IV SCH (07:40)
[2016-08-28] MEDS: CHLORHEXIDINE GLUCONATE 15 ML CUP MUCOUS MEM SCH ×2 (07:40→21:09)
[2016-08-28] MEDS: FUROSEMIDE 250 MG in SODIUM CHLORIDE 0.9% 225 ML IVP SCH (07:42)
[2016-08-28] MEDS: PIPERACILLIN-TAZOBACTAM 3.375 GM in DEXTROSE/WATER 1 50ML.BAG IVPB SCH ×2 (07:45→16:50)
[2016-08-28] MEDS: DILTIAZEM 125 MG in SODIUM CHLORIDE 0.9% 100 ML IV SCH ×2 (08:50→18:24)
[2016-08-28] MEDS ORDERED: IV VANCOMYCIN PER PHARMACY 1 EACH MISC MISCELLANE PRN (09:23)
[2016-08-28] MEDS ORDERED: FUROSEMIDE 250 MG in SODIUM CHLORIDE 0.9% 225 ML IVP SCH (09:30)
[2016-08-28] MEDS: SODIUM BICARBONATE TAB 650 MG TAB PO SCH ×2 (09:35→21:09)
[2016-08-28] MEDS: CALCIUM ACETATE 667 MG CAP PO SCH ×2 (09:36→16:51)
[2016-08-28] MEDS ORDERED: VANCOMYCIN 2,000 MG in SODIUM CHLORIDE 0.9% 500 ML IVPB ONE (10:00)
[2016-08-28 10:06] LABS: Appearance,Urine Clear (Clear); Bacteria,Urine Rare /hpf; Bilirubin,Urine Negative (Negative); Glucose,Urine (UA) Negative (Negative); Ketones,Urine Negative (Negative); Leukocyte Esterase,Urine Large (Negative); Mucus,Urine Rare /hpf; Nitrite,Urine Negative (Negative); PH, Urine 6.5 (5.0-8.0); Particle Count 5497; Protein,Urine 1+ (Negative); RBC,Urine 3 /hpf (0-5); Specific Gravity,Urine 1.013 (1.001-1.035); Squamous Epithelial Cell,Urine <1 /hpf (0-4); UA Billing (MACRO vs. MICRO) MICRO; Urobilinogen,Urine <2.0 mg/dL (<2.0); WBC,Urine 44 /hpf (0-5)
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
[2016-08-28] MEDS: SODIUM CHLORIDE 0.45% 1,000 ML IV SCH (12:40)
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
[2016-08-28] MEDS ORDERED: ACETAMINOPHEN IV (For NPO) 1,000 MG in EMPTY BAG 1 BAG IVPB PRN (13:33)
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
[2016-08-28] MEDS: NOREPINEPHRIN 16 MG-0.9%NS PMX 16 MG/250 ML ML IV SCH (22:02)
[2016-08-29] MEDS: PROPOFOL 500 MG in EMPTY BAG 1 BAG IV SCH ×8 (00:10→22:30)
[2016-08-29] MEDS: PIPERACILLIN-TAZOBACTAM 3.375 GM in DEXTROSE/WATER 1 50ML.BAG IVPB SCH ×3 (00:10→20:39)
[2016-08-29] MEDS: IPRATROPIUM-ALBUTEROL 3 ML NEB INHALATION SCH ×6 (03:11→23:15)
[2016-08-29 04:56] LABS: Anisocytosis Slight; Basophils # (A) 0.1 k/uL (0-0.2); Basophils % (A) 0 %; CH 29.9; CHCM 31.5; Eosinophils # (A) 0.8 k/uL (0-0.7); Eosinophils % (A) 3 %; HDW 3.77; HGB 9.6 gm/dL (13.0-17.5); Hypochromasia Moderate; Luc # (Auto) 0.47; Luc % (Auto) 2; Lymphocytes # (A) 0.7 k/uL (1.0-4.8); Lymphocytes % (A) 3 %; MCH 29.7 pg (25.0-35.0); MCHC 30.9 g/dL (31.0-37.0); Macrocytosis Slight; Mean Platelet Volume 7.4; Monocytes # (A) 0.9 k/uL (0-1.0); Monocytes % (A) 4 %; Neutrophils % (A) 88 %; Poikilocytosis Slight; RBC 3.23 m/uL (4.30-5.90); RDW 18.5 % (11.5-15.5); WBC 24.8 k/uL (3.8-10.6); WBC (Perox) 24.61
[2016-08-29 05:01] LABS: Potassium 4.8 mmol/L (3.5-5.1); Total Protein 4.9 g/dL (6.3-8.2)
[2016-08-29 05:14] LABS: Phosphorous 9.2 mg/dL (2.5-4.5)
[2016-08-29 05:35] LABS: ABG HCO3 15 mmol/L (21-25); ABG PCO2 31 mmHg (35-45); ABG PH 7.31 (7.35-7.45); ABG PO2 84 mmHg (83-108); ABG TCO2 16 mmol/L (19-24)
[2016-08-29 07:16] LABS: INR 1.2 (<1.1); Partial Thromboplastin Time 23.3 sec (22.0-30.0); Prothrombin Time 11.8 sec (9.0-12.0)
--- NOTE | 2016-08-29 08:01 | XR ---
EXAMINATION TYPE: XR chest 1V DATE OF EXAM: 08/29/2016 COMPARISON: Prior chest x-ray 08/28/2016 HISTORY: Pneumonia TECHNIQUE: Single frontal view of the chest is obtained. FINDINGS: Endotracheal tube, NG tube, right jugular central venous catheter, overlying cardiac leads are all again noted. Bilateral airspace disease is present. There is no pneumothorax or sizable effu domingo. Interstitium is increased. Heart size is stable. IMPRESSION: Similar findings to prior exam, correlate for pulmonary edema, pneumonia, ARDS
[2016-08-29] MEDS ORDERED: VANCOMYCIN 1,750 MG in SODIUM CHLORIDE 0.9% 250 ML IVPB ONE (09:00)
[2016-08-29] MEDS: CALCIUM ACETATE 667 MG CAP PO SCH ×2 (09:05→16:43)
[2016-08-29] MEDS: CHLORHEXIDINE GLUCONATE 15 ML CUP MUCOUS MEM SCH ×2 (09:20→20:18)
[2016-08-29] MEDS: PANTOPRAZOLE 40 MG/10 ML VIAL IV SCH (09:20)
[2016-08-29] MEDS: SODIUM BICARBONATE TAB 650 MG TAB PO SCH ×2 (09:20→20:18)
[2016-08-29] MEDS ORDERED: ACETAMINOPHEN IV (For NPO) 1,000 MG in EMPTY BAG 1 BAG IVPB PRN (09:24)
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
[2016-08-29] MEDS ORDERED: FUROSEMIDE 10 MG/ML 10 ML VIAL IV STA (13:04)
[2016-08-29] MEDS: SODIUM CHLORIDE 0.45% 1,000 ML IV SCH (13:53)
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
[2016-08-29] MEDS ORDERED: RX INFO: IV CONTRAST WAS GIVEN 1 EACH MISC MISCELLANE PRN (15:00)
[2016-08-29] MEDS: IOHEXOL 350 MG/ML 25 ML BOTTLE (ORAL USE) PO PRN ×2 (15:45→16:43)
[2016-08-29] MEDS: HYDROmorphone 1 MG/ML 1 ML SYRINGE IVP PRN (16:07)
[2016-08-29] MEDS: METOCLOPRAMIDE 5 MG/ML 2 ML VIAL IVP SCH (20:18)
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
[2016-08-29] MEDS ORDERED: HEPARIN SODIUM,PORCINE 5,000 UNIT/ML 1 ML VIAL ONE (23:20)
[2016-08-30] MEDS: PROPOFOL 500 MG in EMPTY BAG 1 BAG IV SCH ×9 (01:19→23:03)
[2016-08-30] MEDS: METOCLOPRAMIDE 5 MG/ML 2 ML VIAL IVP SCH ×5 (01:20→23:30)
[2016-08-30] MEDS: HYDROmorphone 1 MG/ML 1 ML SYRINGE IVP PRN ×2 (01:58→23:29)
[2016-08-30] MEDS: IPRATROPIUM-ALBUTEROL 3 ML NEB INHALATION SCH ×6 (03:32→23:28)
[2016-08-30 04:15] LABS: Anisocytosis Slight; Basophils # (A) 0.2 k/uL (0-0.2); Basophils % (A) 1 %; CH 29.5; CHCM 31.1; Eosinophils # (A) 0.9 k/uL (0-0.7); Eosinophils % (A) 3 %; HCT 30.9 % (39.0-53.0); HDW 3.82; HGB 9.5 gm/dL (13.0-17.5); Hypochromasia Marked; Luc # (Auto) 1.15; Luc % (Auto) 3; Lymphocytes % (A) 3 %; MCH 29.6 pg (25.0-35.0); MCHC 30.9 g/dL (31.0-37.0); MCV 95.8 fL (80.0-100.0); Macrocytosis Slight; Mean Platelet Volume 7.8; Monocytes # (A) 1.3 k/uL (0-1.0); Monocytes % (A) 4 %; Neutrophils % (A) 87 %; Poikilocytosis Slight; RBC 3.22 m/uL (4.30-5.90); RDW 18.3 % (11.5-15.5); WBC (Perox) 33.55
[2016-08-30 04:28] LABS: INR 1.2 (<1.1); Partial Thromboplastin Time 28.4 sec (22.0-30.0); Prothrombin Time 11.5 sec (9.0-12.0)
[2016-08-30 04:38] LABS: Magnesium 2.3 mg/dL (1.6-2.3)
[2016-08-30 04:39] LABS: Potassium 5.1 mmol/L (3.5-5.1); Total Bilirubin 2.4 mg/dL (0.2-1.3); Total Protein 5.4 g/dL (6.3-8.2)
[2016-08-30 04:45] LABS: WBC 34.5 k/uL (3.8-10.6)
[2016-08-30 04:48] LABS: Phosphorous 10.9 mg/dL (2.5-4.5)
[2016-08-30] MEDS: SODIUM CHLORIDE 0.9% 99 ML with VASOPRESSIN 20 UNIT IV SCH ×4 (05:27→15:39)
[2016-08-30] MEDS: DILTIAZEM 125 MG in SODIUM CHLORIDE 0.9% 100 ML IV SCH ×2 (06:44→19:30)
[2016-08-30] MEDS: NOREPINEPHRIN 16 MG-0.9%NS PMX 16 MG/250 ML ML IV SCH ×2 (06:45→11:11)
--- NOTE | 2016-08-30 07:58 | XR ---
EXAMINATION TYPE: XR chest 1V DATE OF EXAM: 08/30/2016 COMPARISON: 08/29/2016 HISTORY: Postop TECHNIQUE: Single frontal view of the chest is obtained. FINDINGS: Postsurgical changes seen. ET, NG tube and central line stable. Diffuse interstitial patte rn with bilateral infiltrate and pleural effusion noted. No sizable pneumothorax. Pleural-based densi ty within the left upper lobe is stable. Chronic appearing rib deformities noted. IMPRESSION: 1. Chronic pleural-parenchymal changes correlate for venous congestion with bilateral infiltrate and pleural effusion. 2. Pleural-based density left upper lobe stable.
[2016-08-30] MEDS: CHLORHEXIDINE GLUCONATE 15 ML CUP MUCOUS MEM SCH ×2 (08:16→20:20)
[2016-08-30] MEDS: CALCIUM ACETATE 667 MG CAP PO SCH ×2 (08:16→17:51)
[2016-08-30] MEDS: PIPERACILLIN-TAZOBACTAM 3.375 GM in DEXTROSE/WATER 1 50ML.BAG IVPB SCH ×2 (08:17→20:20)
[2016-08-30] MEDS: PANTOPRAZOLE 40 MG/10 ML VIAL IV SCH (08:17)
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
[2016-08-30 08:25] LABS: ABG Base Excess -12.6 mmol/L; ABG HCO3 13 mmol/L (21-25); ABG Oxygen Saturation 92.8 % (94-97); ABG PCO2 33 mmHg (35-45); ABG PH 7.23 (7.35-7.45); ABG PO2 77 mmHg (83-108); ABG TCO2 15 mmol/L (19-24)
[2016-08-30] MEDS: DEXTROSE 5% IN WATER 1,000 ML with SODIUM BICARB (1 MEQ/ML) 150 ML IV SCH (08:57)
[2016-08-30] MEDS: SODIUM BICARBONATE TAB 650 MG TAB PO SCH ×2 (08:58→20:20)
[2016-08-30] MEDS ORDERED: HEPARIN SODIUM,PORCINE 5,000 UNIT/ML 1 ML VIAL ONE (09:00)
[2016-08-30] MEDS: SODIUM CHLORIDE 0.45% 1,000 ML IV SCH (10:58)
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
--- NOTE | 2016-08-30 13:48 | P.PN ---
Progress Note - Text The patient remains essentially unchanged in the ICU. He is a developed a leukocytosis. His white count 24,000. On exam his vital signs appear stable. His abdomen is soft. Incision is clean dry and intact. There is urinating his urostomy. Elevated white count. Patient will undergo computed tomography scan of chest abdomen pelvis to workup for sepsis.
[2016-08-30] MEDS: FLUCONAZOLE IN NACL,ISO-OSM 100 MG in SALINE 1 50ML.BAG IVPB SCH (15:03)
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
[2016-08-31] MEDS: PROPOFOL 500 MG in EMPTY BAG 1 BAG IV SCH ×12 (00:14→22:51)
[2016-08-31] MEDS: SODIUM CHLORIDE 0.9% 99 ML with VASOPRESSIN 20 UNIT IV SCH ×2 (03:10)
[2016-08-31] MEDS: IPRATROPIUM-ALBUTEROL 3 ML NEB INHALATION SCH ×6 (03:16→23:58)
[2016-08-31 04:23] LABS: Anisocytosis Slight; CH 30.2; HCT 25.4 % (39.0-53.0); HDW 4.23; HGB 8.3 gm/dL (13.0-17.5); Hypochromasia Slight; MCH 30.2 pg (25.0-35.0); MCHC 32.6 g/dL (31.0-37.0); MCV 92.7 fL (80.0-100.0); Macrocytosis Slight; Mean Platelet Volume 7.4; Poikilocytosis Moderate; RBC 2.74 m/uL (4.30-5.90); WBC 23.6 k/uL (3.8-10.6); WBC (Perox) 23.58
[2016-08-31 05:03] LABS: Calcium 7.5 mg/dL (8.4-10.2); Magnesium 2.1 mg/dL (1.6-2.3); Total Bilirubin 1.5 mg/dL (0.2-1.3); Total Protein 4.8 g/dL (6.3-8.2)
[2016-08-31 05:12] LABS: Phosphorous 8.8 mg/dL (2.5-4.5)
[2016-08-31] MEDS: METOCLOPRAMIDE 5 MG/ML 2 ML VIAL IVP SCH ×3 (05:39→18:09)
[2016-08-31] MEDS: HYDROmorphone 1 MG/ML 1 ML SYRINGE IVP PRN (05:39)
[2016-08-31] MEDS: DILTIAZEM 125 MG in SODIUM CHLORIDE 0.9% 100 ML IV SCH (05:55)
[2016-08-31 07:09] LABS: Add Differential Manual Differential
[2016-08-31 07:16] LABS: Band Neutrophils % 11.5 %; Nucleated Red Blood Cells 0 /100 WBC (0-0); Polychromasia Present; Total Cells Counted 200
[2016-08-31] MEDS: DEXTROSE 5% IN WATER 1,000 ML with SODIUM BICARB (1 MEQ/ML) 150 ML IV SCH (08:14)
--- NOTE | 2016-08-31 08:15 | XR ---
EXAMINATION TYPE: XR chest 1V DATE OF EXAM: 08/31/2016 COMPARISON: 08/30/2016 HISTORY: Pneumonia FINDINGS: Instrumentation is stable. Bilateral effusions and diffuse interstitial process seen with consolidati on of the lung bases. No pneumothorax. Postoperative changes seen. IMPRESSION: 1. Stable chronic pleural-parenchymal changes. Differential includes pneumonia versus CHF.
[2016-08-31] MEDS: CALCIUM ACETATE 667 MG CAP PO SCH ×2 (08:16→18:10)
[2016-08-31] MEDS: SODIUM BICARBONATE TAB 650 MG TAB PO SCH ×2 (08:17→21:33)
[2016-08-31] MEDS: PANTOPRAZOLE 40 MG/10 ML VIAL IV SCH (08:17)
[2016-08-31] MEDS: CHLORHEXIDINE GLUCONATE 15 ML CUP MUCOUS MEM SCH ×2 (08:17→21:32)
[2016-08-31] MEDS: PIPERACILLIN-TAZOBACTAM 3.375 GM in DEXTROSE/WATER 1 50ML.BAG IVPB SCH ×2 (08:29→21:34)
[2016-08-31 08:57] LABS: ABG Base Excess -4.1 mmol/L; ABG HCO3 21 mmol/L (21-25); ABG Oxygen Saturation 93.8 % (94-97); ABG PCO2 38 mmHg (35-45); ABG PH 7.35 (7.35-7.45); ABG PO2 73 mmHg (83-108); ABG TCO2 22 mmol/L (19-24)
[2016-08-31] MEDS ORDERED: MVI, ADULT NO.4 WITH VIT K 10 ML, TRACE (CONC-1ML/DOSE) 1 ML, PARENTERAL ELECTROLYTES 2... IV ONE ×4 (12:00)
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
[2016-08-31 15:07] LABS: Glucose,Whole Blood 137 mg/dL (75-99)
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
[2016-08-31 15:48] LABS: Hepatitis B Surface Ag Index 0.06
[2016-08-31 15:53] LABS: Hepatitis B Core IgM Index 0.04
[2016-08-31] MEDS: NOREPINEPHRIN 16 MG-0.9%NS PMX 16 MG/250 ML ML IV SCH (15:53)
[2016-08-31 16:06] LABS: Hepatitis B Surface Antibody Negative (Negative)
[2016-08-31] MEDS: FLUCONAZOLE IN NACL,ISO-OSM 100 MG in SALINE 1 50ML.BAG IVPB SCH (16:11)
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
[2016-08-31] MEDS: INSULIN LISPRO (humaLOG) 300 UNIT/3 ML VIAL SQ SCH (17:36)
[2016-08-31 17:37] LABS: Glucose,Whole Blood 142 mg/dL (75-99)
--- NOTE | 2016-08-31 18:03 | PN ---
DATE OF SERVICE: 08/31/2016 Reason for follow-up is possible sepsis and leukocytosis. INTERVAL HISTORY: The patient is afebrile. He is hemodynamically slightly better today with decreasing amount of Levophed down to 20 mcg. Patient remains to be intubated on the vent. Currently FiO2 stable at 40%. No history obtained from the patient. History also obtained from the R.N. On examination, blood pressure 109/41 with pulse of 120. Temperature 98.4. He is 94% on 40% FiO2. General description is a middle-age male intubated on the vent. RESPIRATORY SYSTEM: Unlabored breathing. Clear to auscultation anteriorly. HEART: S1, S2, regular rate and rhythm. ABDOMEN: Soft, slightly distended. No guarding or rigidity. LABS: Hemoglobin 8.1, white count 23.6 with a BUN of 56, creatinine 3.10. Blood cultures so far pending. DIAGNOSTIC IMPRESSION AND PLAN: Patient with sepsis syndrome with question of possible hypovolemic or abdominal source. The patient ( ) and blood culture remained to be negative. He is currently covered with broad spectrum antibiotics in the form of Zosyn, which will be ( ). White count did show downward trend. was present at the bedside. Questions and concerns were answered.
[2016-08-31 20:53] LABS: Hemoglobin A1C 5.2 % (4.2-6.1)
--- NOTE | 2016-08-31 21:25 | PCN ---
DATE OF PROCEDURE: PREOPERATIVE DIAGNOSIS: Acute renal failure. PROCEDURE: Placement of the dialysis catheter left femoral approach. This patient was seen in the intensive care unit. Left side of the ( ) was prepped and draped in usual sterile manner and 1% lidocaine infiltrated. Multiple ( ) into the left common femoral vein. Micropuncture guidewire passed and 4 Panamanian dilator was advanced. After that regular guidewire passed and then we advanced a dilator and then we placed a 20 cm dialysis catheter left femoral approach and flushed with heparin saline and hep-locked and secured with nylon. The patient tolerated the procedure well.
[2016-08-31] MEDS ORDERED: ACETAMINOPHEN IV (For NPO) 1,000 MG in EMPTY BAG 1 BAG IVPB ONE (22:39)
[2016-09-01] MEDS: DILTIAZEM 125 MG in SODIUM CHLORIDE 0.9% 100 ML IV SCH ×2 (00:01→14:31)
[2016-09-01] MEDS: SODIUM CHLORIDE 0.45% 1,000 ML IV SCH (00:02)
[2016-09-01] MEDS: PROPOFOL 500 MG in EMPTY BAG 1 BAG IV SCH ×13 (00:08→22:42)
[2016-09-01] MEDS: METOCLOPRAMIDE 5 MG/ML 2 ML VIAL IVP SCH ×4 (00:17→19:00)
[2016-09-01] MEDS: INSULIN LISPRO (humaLOG) 300 UNIT/3 ML VIAL SQ SCH ×4 (00:24→17:16)
[2016-09-01 00:26] LABS: Glucose,Whole Blood 158 mg/dL (75-99)
[2016-09-01] MEDS: NOREPINEPHRIN 16 MG-0.9%NS PMX 16 MG/250 ML ML IV SCH (01:21)
[2016-09-01] MEDS: IPRATROPIUM-ALBUTEROL 3 ML NEB INHALATION SCH ×6 (03:28→23:49)
[2016-09-01 05:22] LABS: Glucose,Whole Blood 176 mg/dL (75-99)
[2016-09-01 06:11] LABS: Anisocytosis Slight; Basophils # (A) 0.1 k/uL (0-0.2); Basophils % (A) 1 %; CH 30.3; CHCM 33.1; Eosinophils % (A) 9 %; HCT 25.5 % (39.0-53.0); HDW 4.24; HGB 8.1 gm/dL (13.0-17.5); Hypochromasia Slight; Luc # (Auto) 0.75; Luc % (Auto) 3; Lymphocytes # (A) 0.7 k/uL (1.0-4.8); Lymphocytes % (A) 3 %; MCH 29.6 pg (25.0-35.0); MCV 92.6 fL (80.0-100.0); Macrocytosis Slight; Mean Platelet Volume 7.5; Monocytes # (A) 0.6 k/uL (0-1.0); Monocytes % (A) 3 %; Neutrophils # (A) 18.9 k/uL (1.3-7.7); Neutrophils % (A) 82 %; Poikilocytosis Moderate; RBC 2.75 m/uL (4.30-5.90); RDW 19.4 % (11.5-15.5); WBC 23.1 k/uL (3.8-10.6); WBC (Perox) 23.03
[2016-09-01 06:28] LABS: Ionized Calcium 4.4 mg/dL (4.5-5.3)
[2016-09-01 06:49] LABS: Calcium 7.4 mg/dL (8.4-10.2); Magnesium 2.1 mg/dL (1.6-2.3); Phosphorous 6.8 mg/dL (2.5-4.5); Potassium 3.6 mmol/L (3.5-5.1); Total Bilirubin 1.5 mg/dL (0.2-1.3); Total Protein 5.1 g/dL (6.3-8.2)
[2016-09-01] MEDS ORDERED: Potassium Replacement Protocol 1 EACH MISC MISCELLANE PRN ×2 (07:46→08:31)
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
--- NOTE | 2016-09-01 08:04 | XR ---
EXAMINATION TYPE: XR chest 1V DATE OF EXAM: 09/01/2016 COMPARISON: Prior chest x-ray 08/31/2016 HISTORY: Pneumonia, intubated TECHNIQUE: Single frontal view of the chest is obtained. FINDINGS: Endotracheal tube, NG tube, right jugular central venous catheter, overlying cardiac leads are present. The heart is enlarged, patient is post median sternotomy. Central vascularity and inter stitium are increased. No evident pneumothorax or sizable effusion. IMPRESSION: Similar to prior exam, correlate for congestive heart failure, pneumonia not excluded. F ollow-up recommended.
[2016-09-01] MEDS: CHLORHEXIDINE GLUCONATE 15 ML CUP MUCOUS MEM SCH ×2 (08:08→20:10)
[2016-09-01] MEDS: CALCIUM ACETATE 667 MG CAP PO SCH ×2 (08:08→17:16)
[2016-09-01] MEDS: PANTOPRAZOLE 40 MG/10 ML VIAL IV SCH (08:09)
[2016-09-01] MEDS: SODIUM BICARBONATE TAB 650 MG TAB PO SCH ×2 (08:09→20:10)
[2016-09-01] MEDS: PIPERACILLIN-TAZOBACTAM 3.375 GM in DEXTROSE/WATER 1 50ML.BAG IVPB SCH ×2 (08:19→20:12)
[2016-09-01] MEDS: SODIUM CHLORIDE 0.9% 1,000 ML IV SCH (08:30)
[2016-09-01] MEDS: POTASSIUM CHLORIDE 10 MEQ in WATER FOR INJECTION 1 100ML.BAG IVPB SCH ×2 (08:54→10:41)
[2016-09-01] MEDS ORDERED: POTASSIUM CHLORIDE 10 MEQ, LIDOCAINE 2% INJ 10 MG in SODIUM CHLORIDE 0.9% 100 ML IV SCH (09:00)
[2016-09-01 09:12] LABS: ABG HCO3 20 mmol/L (21-25); ABG PCO2 33 mmHg (35-45); ABG PO2 117 mmHg (83-108)
[2016-09-01 09:13] LABS: ABG Base Excess -3.9 mmol/L; ABG TCO2 21 mmol/L (19-24)
[2016-09-01] MEDS ORDERED: ROCURONIUM BROMIDE 10 MG/ML 10 ML VIAL IV ONE (11:26)
[2016-09-01] MEDS ORDERED: MIDAZOLAM 2 MG/2 ML VIAL ONE (11:26)
[2016-09-01] MEDS ORDERED: fentaNYL (PF) 50 MCG/ML 2 ML AMP ONE (11:26)
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
[2016-09-01] MEDS ORDERED: LACTATED RINGERS 1,000 ML IV ONE (11:54)
[2016-09-01] MEDS ORDERED: IV FLUID CONTINUATION 400 ML IV ONE (11:56)
[2016-09-01] MEDS ORDERED: VANCOMYCIN 1,750 MG in SODIUM CHLORIDE 0.9% 250 ML IVPB ONE (14:00)
[2016-09-01 14:20] LABS: Glucose,Whole Blood 145 mg/dL (75-99)
[2016-09-01] MEDS: FLUCONAZOLE IN NACL,ISO-OSM 100 MG in SALINE 1 50ML.BAG IVPB SCH (14:32)
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
[2016-09-01] MEDS: IOHEXOL 350 MG/ML 25 ML BOTTLE (ORAL USE) PO PRN ×2 (15:53→17:28)
[2016-09-01 17:20] LABS: Glucose,Whole Blood 172 mg/dL (75-99)
[2016-09-01] MEDS: 1: MVI, ADULT NO.4 WITH VIT K 10 ML, TRACE (CONC-1ML/DOSE) 1 ML, PARENTERAL ELECTROLYTES IV SCH ×4 (17:51)
--- NOTE | 2016-09-01 19:03 | P.OP ---
Date of Procedure: 09/01/16 Preoperative Diagnosis: Respiratory failure Postoperative Diagnosis: Respiratory failure Procedure(s) Performed: Tracheostomy Implants: Anesthesia: CALVINA Surgeon: Jon Bills Estimated Blood Loss (ml): 15 Pathology: none sent Condition: stable Disposition: PACU Indications for Procedure: Operative Findings: Description of Procedure: The patient's placed the operative table in the supine position. He received general anesthesia. His neck was extended and prepped and draped usual sterile fashion. The patient a previous tracheostomy scar. A skin incision made proximal to 2 cm above the sternal notch and then using cautery the subcutaneous tissue and platysma was divided. The strap muscles were divided midline. The wheat [place] retractor used to expose the trachea. And then the NG tube was inserted in the right mainstem bronchus and then ventilation was held. Patient trachea cavity was performed using cautery. The NG tube was then brought back under direct vision. And then the #6 [place] tracheostomy tube was placed. The balloon was insufflated. The patient was connected to ventilator and end-tidal CO2 was confirmed. The skin was closed with 3-0 nylon suture. The tracheostomy tube was secured with umbilical tape.
--- NOTE | 2016-09-01 19:31 | CT ---
EXAMINATION TYPE: CT abdomen pelvis wo con DATE OF EXAM: 09/01/2016 COMPARISON: NONE HISTORY: Increased abdominal distention. CT DLP: 2553.20 mGycm Automated exposure control for dose reduction was used. TECHNIQUE: Helical acquisition of images from the lung bases through the pelvis. Patient received or al contrast only. FINDINGS: The heart remains enlarged. LUNG BASES: Bilateral pleural effusions and associated probable atelectatic changes or airspace disea se again noted, air bronchograms are present. NG tube in place coursing to the stomach. AORTA: No significant abnormality is appreciated. LIVER/GB: Similar to prior exam, gallbladder is somewhat distended. Lack of contrast may limit the ev aluation. The liver is enlarged. PANCREAS: No significant abnormality is seen. SPLEEN: No significant abnormality is seen. ADRENALS: No significant abnormality is seen. KIDNEYS: Similar to prior exam, hydronephrosis noted in the left kidney, some increased density prese nt within the left kidney as compared to the right, ureteral diversion, ileal loop changes are presen t. REPRODUCTIVE ORGANS: No significant abnormality is seen. URINARY BLADDER: Not seen BOWEL: There are small bowel loops show wall thickening as on prior exam, some attenuated loops are noted. Contrast is coursing into the colon. FREE AIR: No Free Air is visible. ASCITES: There is moderate ascites. PELVIC ADENOPATHY: None visualized. RETROPERITONEAL ADENOPATHY: No Retroperitoneal Adenopathy visible. OSSEOUS STRUCTURES: Stable multiple right-sided rib fractures are present. Inferior and superior pub ic ramus on the left shows fractures which is comminuted and displaced. Spinous process fracture pres ent on the left at L1, L2, L3, on the right at L2-L4. Posterior rib fracture on the left present at 1 1,10, 9, 7 and possibly sixth ribs, T9 vertebral body again noted. Anterior left-sided rib fractures are also present. Postop changes are noted. Lack of intravenous contrast may compromise sensitivity. Left common femoral venous catheter is present IMPRESSION: FINDINGS ARE SIMILAR TO PRIOR EXAM. Multiple left-sided rib fractures, spinous process fractures are present, pelvic fractures.
[2016-09-01] MEDS ORDERED: HEPARIN SODIUM,PORCINE 5,000 UNIT/ML 1 ML VIAL ONE (23:50)
[2016-09-02] MEDS: METOCLOPRAMIDE 5 MG/ML 2 ML VIAL IVP SCH ×4 (00:26→17:14)
[2016-09-02] MEDS: PROPOFOL 500 MG in EMPTY BAG 1 BAG IV SCH ×5 (00:27→08:55)
[2016-09-02] MEDS: INSULIN LISPRO (humaLOG) 300 UNIT/3 ML VIAL SQ SCH ×6 (00:34→19:59)
[2016-09-02 00:35] LABS: Glucose,Whole Blood 137 mg/dL (75-99)
[2016-09-02] MEDS: IPRATROPIUM-ALBUTEROL 3 ML NEB INHALATION SCH ×6 (03:32→23:40)
[2016-09-02] MEDS: DILTIAZEM 125 MG in SODIUM CHLORIDE 0.9% 100 ML IV SCH ×8 (04:33→16:15)
[2016-09-02 04:34] LABS: Glucose,Whole Blood 159 mg/dL (75-99)
[2016-09-02] MEDS: NOREPINEPHRIN 16 MG-0.9%NS PMX 16 MG/250 ML ML IV SCH ×2 (04:34→08:55)
[2016-09-02 04:48] LABS: Anisocytosis Slight; Basophils # (A) 0.1 k/uL (0-0.2); Basophils % (A) 1 %; Eosinophils # (A) 1.9 k/uL (0-0.7); Eosinophils % (A) 9 %; HCT 24.4 % (39.0-53.0); HDW 4.03; HGB 7.8 gm/dL (13.0-17.5); Hypochromasia Moderate; Luc # (Auto) 0.41; Luc % (Auto) 2; Lymphocytes # (A) 0.5 k/uL (1.0-4.8); Lymphocytes % (A) 3 %; MCH 30.4 pg (25.0-35.0); MCV 94.7 fL (80.0-100.0); Macrocytosis Slight; Mean Platelet Volume 7.8; Monocytes # (A) 0.4 k/uL (0-1.0); Monocytes % (A) 2 %; Neutrophils # (A) 16.8 k/uL (1.3-7.7); Neutrophils % (A) 84 %; Poikilocytosis Moderate; RBC 2.58 m/uL (4.30-5.90); RDW 19.5 % (11.5-15.5); WBC 20.1 k/uL (3.8-10.6); WBC (Perox) 21.59
[2016-09-02 05:06] LABS: Ionized Calcium 4.4 mg/dL (4.5-5.3)
[2016-09-02 05:17] LABS: Calcium 7.2 mg/dL (8.4-10.2); Magnesium 1.9 mg/dL (1.6-2.3); Phosphorous 5.1 mg/dL (2.5-4.5); Potassium 3.4 mmol/L (3.5-5.1); Total Bilirubin 1.3 mg/dL (0.2-1.3)
[2016-09-02 08:10] LABS: ABG HCO3 22 mmol/L (21-25); ABG PCO2 36 mmHg (35-45); ABG PH 7.39 (7.35-7.45); ABG PO2 72 mmHg (83-108)
--- NOTE | 2016-09-02 08:10 | XR ---
EXAMINATION TYPE: XR chest 1V DATE OF EXAM: 09/02/2016 COMPARISON: Prior exam dated 09/01/2016 HISTORY: Pneumonia TECHNIQUE: Single frontal view of the chest is obtained. FINDINGS: Pleural-parenchymal changes show a similar appearance. Tracheostomy tube has been placed i n the interval and is overlying the tracheal air column, endotracheal tube has been removed. Right ju gular central venous catheter and NG tube are again noted. Patient is post median sternotomy and the heart remains enlarged. No evident pneumothorax, small bilateral pleural effusions are present. IMPRESSION: Interval tracheostomy tube placement. Otherwise similar findings compared to prior. Mult iple rib fractures.
[2016-09-02 08:11] LABS: ABG Base Excess -2.5 mmol/L; ABG TCO2 23 mmol/L (19-24)
[2016-09-02] MEDS: POTASSIUM CHLORIDE 20 MEQ in WATER FOR INJECTION 1 100ML.BAG IVPB SCH ×2 (08:51→10:46)
[2016-09-02] MEDS: 1: MVI, ADULT NO.4 WITH VIT K 10 ML, TRACE (CONC-1ML/DOSE) 1 ML, PARENTERAL ELECTROLYTES IV SCH ×4 (08:51)
[2016-09-02] MEDS: CHLORHEXIDINE GLUCONATE 15 ML CUP MUCOUS MEM SCH ×2 (08:52→19:59)
[2016-09-02] MEDS: CALCIUM ACETATE 667 MG CAP PO SCH ×3 (08:52→17:09)
[2016-09-02] MEDS: PANTOPRAZOLE 40 MG/10 ML VIAL IV SCH (08:52)
[2016-09-02] MEDS: PIPERACILLIN-TAZOBACTAM 3.375 GM in DEXTROSE/WATER 1 50ML.BAG IVPB SCH ×2 (08:54→19:59)
[2016-09-02] MEDS: SODIUM CHLORIDE 0.9% 1,000 ML IV SCH (08:56)
[2016-09-02] MEDS: SODIUM BICARBONATE TAB 650 MG TAB PO SCH ×2 (09:37→20:01)
[2016-09-02 09:49] LABS: Glucose,Whole Blood 145 mg/dL (75-99)
[2016-09-02] MEDS ORDERED: HEPARIN SODIUM,PORCINE 5,000 UNIT/ML 1 ML VIAL ONE (10:00)
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
[2016-09-02] MEDS ORDERED: 1: MVI, ADULT NO.4 WITH VIT K 10 ML, TRACE (CONC-1ML/DOSE) 1 ML, PARENTERAL ELECTROLYTES IV SCH ×6 (12:00)
[2016-09-02 12:04] LABS: Glucose,Whole Blood 155 mg/dL (75-99)
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
[2016-09-02] MEDS: FLUCONAZOLE IN NACL,ISO-OSM 100 MG in SALINE 1 50ML.BAG IVPB SCH (13:05)
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
[2016-09-02] MEDS: SODIUM CHLORIDE 0.9% 99 ML with VASOPRESSIN 20 UNIT IV SCH ×2 (13:21)
[2016-09-02] MEDS ORDERED: FAT EMULSION 20% 250 ML in EMPTY BAG 1 BAG IV SCH (16:00)
[2016-09-02] MEDS: HYDROmorphone 1 MG/ML 1 ML SYRINGE IVP PRN (16:16)
[2016-09-02 17:10] LABS: Glucose,Whole Blood 135 mg/dL (75-99)
[2016-09-02 17:22] LABS: Glucose,Whole Blood 139 mg/dL (75-99)
[2016-09-02 19:34] LABS: Glucose,Whole Blood 162 mg/dL (75-99)
[2016-09-02] MEDS ORDERED: METOPROLOL TARTRATE 50 MG TAB PO SCH (21:00)
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
[2016-09-03 00:09] LABS: Glucose,Whole Blood 149 mg/dL (75-99)
[2016-09-03] MEDS: METOCLOPRAMIDE 5 MG/ML 2 ML VIAL IVP SCH ×5 (00:09→23:32)
[2016-09-03] MEDS: INSULIN LISPRO (humaLOG) 300 UNIT/3 ML VIAL SQ SCH ×7 (00:09→23:33)
[2016-09-03] MEDS: HYDROmorphone 1 MG/ML 1 ML SYRINGE IVP PRN ×2 (00:17→13:45)
[2016-09-03] MEDS: IPRATROPIUM-ALBUTEROL 3 ML NEB INHALATION SCH ×7 (03:52→23:21)
[2016-09-03 04:00] LABS: Glucose,Whole Blood 176 mg/dL (75-99)
[2016-09-03] MEDS: DILTIAZEM 125 MG in SODIUM CHLORIDE 0.9% 100 ML IV SCH (04:07)
[2016-09-03] MEDS: 1: MVI, ADULT NO.4 WITH VIT K 10 ML, TRACE (CONC-1ML/DOSE) 1 ML, PARENTERAL ELECTROLYTES IV SCH ×12 (04:07→20:13)
[2016-09-03 04:13] LABS: Anisocytosis Slight; CH 29.5; CHCM 31.6; HCT 25.4 % (39.0-53.0); HDW 3.96; HGB 7.9 gm/dL (13.0-17.5); Hypochromasia Moderate; Immature Gran Flag Slight; MCH 29.4 pg (25.0-35.0); MCHC 31.2 g/dL (31.0-37.0); MCV 94.4 fL (80.0-100.0); Macrocytosis Slight; Mean Platelet Volume 8.2; Poikilocytosis Slight; RBC 2.69 m/uL (4.30-5.90); RDW 19.5 % (11.5-15.5); WBC 24.2 k/uL (3.8-10.6); WBC (Perox) 24.11
[2016-09-03 05:00] LABS: Add Differential Manual Differential
[2016-09-03 05:02] LABS: Calcium 7.6 mg/dL (8.4-10.2); Magnesium 1.9 mg/dL (1.6-2.3); Phosphorous 3.6 mg/dL (2.5-4.5); Potassium 3.9 mmol/L (3.5-5.1); Total Bilirubin 1.5 mg/dL (0.2-1.3); Total Protein 5.7 g/dL (6.3-8.2)
[2016-09-03 05:03] LABS: Metamyelocytes % 2.5 %; Myelocytes % 4.5 %; Nucleated Red Blood Cells 0 /100 WBC (0-0); Total Cells Counted 200
[2016-09-03 05:04] LABS: Basophilic Stippling Present; Manual Review Performed; Polychromasia Present
[2016-09-03 05:06] LABS: Ionized Calcium 4.7 mg/dL (4.5-5.3)
[2016-09-03] MEDS ORDERED: POTASSIUM CHLORIDE ORAL LIQUID 40 MEQ/30 ML CUP PO ONE (06:59)
--- NOTE | 2016-09-03 07:57 | XR ---
EXAMINATION TYPE: XR chest 1V DATE OF EXAM: 09/03/2016 COMPARISON: 09/02/2016 HISTORY: Pneumonia TECHNIQUE: Single frontal view of the chest is obtained. FINDINGS: NG tube, central line, postoperative change, and tracheostomy tube stable. Bilateral infil trate and pleural effusion. Chronic rib deformity seen. Pleural-based mass or loculated fluid collect ion along the left chest stable. Interstitial pattern noted. IMPRESSION: 1. Stable bilateral pleural effusion and infiltrate. Interstitial pattern may been the basis of CHF. Underlying pneumonia not excluded. 2. Stable pleural-based density left upper lobe as discussed above.
[2016-09-03 08:33] LABS: Glucose,Whole Blood 158 mg/dL (75-99)
[2016-09-03] MEDS: CALCIUM ACETATE 667 MG CAP PO SCH ×2 (08:59→16:45)
[2016-09-03] MEDS: CHLORHEXIDINE GLUCONATE 15 ML CUP MUCOUS MEM SCH ×2 (09:02→20:05)
[2016-09-03] MEDS: LACTULOSE 20 GM/30 ML CUP PO SCH ×4 (09:03→20:54)
[2016-09-03] MEDS: DILTIAZEM ORAL 30 MG TAB PO SCH ×2 (09:03→16:45)
[2016-09-03] MEDS: PANTOPRAZOLE 40 MG/10 ML VIAL IV SCH (09:03)
[2016-09-03] MEDS: PIPERACILLIN-TAZOBACTAM 3.375 GM in DEXTROSE/WATER 1 50ML.BAG IVPB SCH ×2 (09:04→20:04)
[2016-09-03] MEDS: SODIUM BICARBONATE TAB 650 MG TAB PO SCH ×2 (09:05→20:14)
[2016-09-03] MEDS: METOPROLOL TARTRATE 25 MG TAB PO SCH ×2 (09:17→20:06)
[2016-09-03 09:25] LABS: ABG Base Excess -2.4 mmol/L; ABG HCO3 21 mmol/L (21-25); ABG PCO2 32 mmHg (35-45); ABG PH 7.44 (7.35-7.45); ABG PO2 81 mmHg (83-108); ABG TCO2 22 mmol/L (19-24)
[2016-09-03] MEDS: SODIUM CHLORIDE 0.9% 1,000 ML IV SCH (09:31)
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
--- NOTE | 2016-09-03 11:23 | P.PN ---
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 with Patient: Greater than 30
[2016-09-03 12:13] LABS: Glucose,Whole Blood 126 mg/dL (75-99)
[2016-09-03] MEDS: FLUCONAZOLE IN NACL,ISO-OSM 100 MG in SALINE 1 50ML.BAG IVPB SCH (13:46)
[2016-09-03 17:14] LABS: Glucose,Whole Blood 151 mg/dL (75-99)
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
[2016-09-03] MEDS: PROPOFOL 500 MG in EMPTY BAG 1 BAG IV SCH (20:00)
[2016-09-03 20:05] LABS: Glucose,Whole Blood 132 mg/dL (75-99)
[2016-09-03] MEDS: DILTIAZEM ORAL 60 MG TAB PO SCH (20:54)
[2016-09-03 23:33] LABS: Glucose,Whole Blood 128 mg/dL (75-99)
[2016-09-04] MEDS: PROPOFOL 500 MG in EMPTY BAG 1 BAG IV SCH ×11 (01:23→23:14)
[2016-09-04] MEDS: IPRATROPIUM-ALBUTEROL 3 ML NEB INHALATION SCH ×6 (03:39→23:06)
[2016-09-04] MEDS: INSULIN LISPRO (humaLOG) 300 UNIT/3 ML VIAL SQ SCH ×5 (04:30→21:07)
[2016-09-04 04:40] LABS: Anisocytosis Moderate; CH 30.1; CHCM 32.2; Calcium 7.6 mg/dL (8.4-10.2); HCT 23.6 % (39.0-53.0); HDW 4.23; HGB 7.4 gm/dL (13.0-17.5); Hypochromasia Moderate; Immature Gran Flag Slight; MCH 29.7 pg (25.0-35.0); MCHC 31.3 g/dL (31.0-37.0); MCV 94.9 fL (80.0-100.0); Macrocytosis Slight; Magnesium 2.1 mg/dL (1.6-2.3); Mean Platelet Volume 7.5; Phosphorous 3.2 mg/dL (2.5-4.5); Poikilocytosis Moderate; RBC 2.49 m/uL (4.30-5.90); RDW 20.4 % (11.5-15.5); Total Bilirubin 1.6 mg/dL (0.2-1.3); Total Protein 5.6 g/dL (6.3-8.2); WBC 21.1 k/uL (3.8-10.6); WBC (Perox) 22.51
[2016-09-04 05:49] LABS: Add Differential Manual Differential
[2016-09-04 05:56] LABS: Metamyelocytes % 1.5 %; Myelocytes % 0.5 %; Nucleated Red Blood Cells 0 /100 WBC (0-0); Polychromasia Present; Total Cells Counted 200
[2016-09-04 05:59] LABS: Large Platelets Present
[2016-09-04] MEDS: METOCLOPRAMIDE 5 MG/ML 2 ML VIAL IVP SCH ×3 (06:05→17:47)
--- NOTE | 2016-09-04 07:19 | XR ---
EXAMINATION TYPE: XR chest 1V DATE OF EXAM: 09/04/2016 COMPARISON: 09/03/2016 HISTORY: Shortness of breath FINDINGS: There are bilateral pleural effusions with cardiomegaly and bibasilar infiltrate. There is a diffuse interstitial pattern. Tracheostomy tube, central line and NG tube stable. Changes IMPRESSION: 1. Stable bilateral infiltrate and pleural effusion. Mild central venous congestion not excluded.
[2016-09-04] MEDS: CALCIUM ACETATE 667 MG CAP PO SCH ×2 (07:48→17:19)
[2016-09-04] MEDS: SODIUM CHLORIDE 0.9% 1,000 ML IV SCH (07:49)
[2016-09-04 07:54] LABS: Glucose,Whole Blood 142 mg/dL (75-99)
[2016-09-04] MEDS: PIPERACILLIN-TAZOBACTAM 3.375 GM in DEXTROSE/WATER 1 50ML.BAG IVPB SCH ×2 (08:05→21:10)
[2016-09-04] MEDS: METOPROLOL TARTRATE 25 MG TAB PO SCH ×2 (08:07→21:08)
[2016-09-04] MEDS: CHLORHEXIDINE GLUCONATE 15 ML CUP MUCOUS MEM SCH ×2 (08:07→21:07)
[2016-09-04] MEDS: LACTULOSE 20 GM/30 ML CUP PO SCH ×4 (08:07→21:08)
[2016-09-04] MEDS: PANTOPRAZOLE 40 MG/10 ML VIAL IV SCH (08:08)
[2016-09-04] MEDS: SODIUM BICARBONATE TAB 650 MG TAB PO SCH (08:09)
[2016-09-04 09:15] LABS: ABG HCO3 21 mmol/L (21-25); ABG PCO2 35 mmHg (35-45); ABG PO2 89 mmHg (83-108); ABG TCO2 22 mmol/L (19-24)
[2016-09-04] MEDS: DILTIAZEM ORAL 60 MG TAB PO SCH (10:01)
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
[2016-09-04] MEDS: 1: MVI, ADULT NO.4 WITH VIT K 10 ML, TRACE (CONC-1ML/DOSE) 1 ML, PARENTERAL ELECTROLYTES IV SCH ×6 (11:18)
--- NOTE | 2016-09-04 11:24 | P.PN ---
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 and with the respiratory therapist at bedside. Critical care time is 32 minutes Time with Patient: Greater than 30
[2016-09-04] MEDS: NOREPINEPHRIN 16 MG-0.9%NS PMX 16 MG/250 ML ML IV SCH (11:37)
[2016-09-04 12:01] LABS: Glucose,Whole Blood 112 mg/dL (75-99)
[2016-09-04] MEDS: FLUCONAZOLE IN NACL,ISO-OSM 100 MG in SALINE 1 50ML.BAG IVPB SCH (12:02)
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
[2016-09-04] MEDS: DILTIAZEM 125 MG in SODIUM CHLORIDE 0.9% 100 ML IV SCH ×2 (13:51→23:12)
[2016-09-04] MEDS ORDERED: DILTIAZEM 5 MG/ML 5 ML VIAL IVP STA (14:57)
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
[2016-09-04 16:35] LABS: Glucose,Whole Blood 139 mg/dL (75-99)
[2016-09-04 16:39] VITALS: BP 100/55
[2016-09-04 21:04] LABS: Glucose,Whole Blood 149 mg/dL (75-99)
[2016-09-05 00:24] LABS: Glucose,Whole Blood 151 mg/dL (75-99)
[2016-09-05] MEDS: INSULIN LISPRO (humaLOG) 300 UNIT/3 ML VIAL SQ SCH ×6 (00:26→20:05)
[2016-09-05] MEDS: METOCLOPRAMIDE 5 MG/ML 2 ML VIAL IVP SCH ×4 (00:26→18:42)
[2016-09-05] MEDS ORDERED: ACETAMINOPHEN IV (For NPO) 1,000 MG in EMPTY BAG 1 BAG IVPB PRN (00:31)
[2016-09-05] MEDS: PROPOFOL 500 MG in EMPTY BAG 1 BAG IV SCH ×11 (01:26→23:46)
[2016-09-05] MEDS: IPRATROPIUM-ALBUTEROL 3 ML NEB INHALATION SCH ×6 (03:07→23:13)
[2016-09-05] MEDS: 1: MVI, ADULT NO.4 WITH VIT K 10 ML, TRACE (CONC-1ML/DOSE) 1 ML, PARENTERAL ELECTROLYTES IV SCH ×17 (04:33→20:35)
[2016-09-05 04:34] LABS: Glucose,Whole Blood 108 mg/dL (75-99)
[2016-09-05 04:48] LABS: Anisocytosis Slight; CHCM 31.7; HCT 27.8 % (39.0-53.0); HGB 8.8 gm/dL (13.0-17.5); Hypochromasia Marked; MCH 30.3 pg (25.0-35.0); MCHC 31.5 g/dL (31.0-37.0); MCV 96.1 fL (80.0-100.0); Macrocytosis Slight; Mean Platelet Volume 8.2; Poikilocytosis Moderate; RBC 2.89 m/uL (4.30-5.90); RDW 19.4 % (11.5-15.5); WBC (Perox) 39.78
[2016-09-05 04:55] LABS: WBC 38.1 k/uL (3.8-10.6)
[2016-09-05 05:01] LABS: Calcium 7.9 mg/dL (8.4-10.2); Magnesium 2.1 mg/dL (1.6-2.3); Phosphorous 3.3 mg/dL (2.5-4.5); Potassium 4.8 mmol/L (3.5-5.1); Total Bilirubin 2.9 mg/dL (0.2-1.3); Total Protein 6.1 g/dL (6.3-8.2)
[2016-09-05 05:07] LABS: Add Differential Manual Differential
[2016-09-05 05:09] LABS: Band Neutrophils % 11.5 %; Nucleated Red Blood Cells 0 /100 WBC (0-0); Total Cells Counted 200
[2016-09-05 05:11] LABS: Basophilic Stippling Present; Manual Review Performed
[2016-09-05 05:12] LABS: Polychromasia Present
[2016-09-05 05:14] LABS: Large Platelets Present; Spherocytes Present
[2016-09-05] MEDS: NOREPINEPHRIN 16 MG-0.9%NS PMX 16 MG/250 ML ML IV SCH ×2 (06:45→22:20)
--- NOTE | 2016-09-05 08:00 | XR ---
EXAMINATION TYPE: XR chest 1V DATE OF EXAM: 09/05/2016 HISTORY: on vent . REFERENCE: Previous study dated 09/04/2016. FINDINGS: A tracheostomy tube is in place. Its tip overlies the tracheal air column in this single fr ontal projection. An NG tube is present but its tip is not visualized. A right internal jugular chun ter is in place. Its tip is in the superior vena cava. The heart is enlarged. There is vascular congestion and mild interstitial change. I suspect small eff usions, greater on the right than the left. There is left basilar airspace disease. IMPRESSION: 1. CARDIOMEGALY. 2. VASCULAR CONGESTION AND INTERSTITIAL CHANGE SUGGESTING MILD HEART FAILURE. 3. LEFT BASILAR AIRSPACE DISEASE. 4. SMALL, BILATERAL EFFUSIONS.
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
[2016-09-05 08:12] LABS: Glucose,Whole Blood 157 mg/dL (75-99)
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
[2016-09-05] MEDS: CHLORHEXIDINE GLUCONATE 15 ML CUP MUCOUS MEM SCH ×2 (08:30→22:20)
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
[2016-09-05 08:51] LABS: ABG Base Excess -1.1 mmol/L; ABG HCO3 23 mmol/L (21-25); ABG PCO2 38 mmHg (35-45); ABG PO2 69 mmHg (83-108); ABG TCO2 24 mmol/L (19-24)
[2016-09-05] MEDS ORDERED: FUROSEMIDE 10 MG/ML 10 ML VIAL IV STA (09:16)
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
[2016-09-05 09:42] LABS: Glucose,Whole Blood 131 mg/dL (75-99)
[2016-09-05] MEDS: CALCIUM ACETATE 667 MG CAP PO SCH ×2 (09:54→18:41)
[2016-09-05] MEDS: LACTULOSE 20 GM/30 ML CUP PO SCH ×4 (10:05→22:20)
[2016-09-05] MEDS: METOPROLOL TARTRATE 25 MG TAB PO SCH ×4 (10:06→22:20)
[2016-09-05] MEDS: PIPERACILLIN-TAZOBACTAM 3.375 GM in DEXTROSE/WATER 1 50ML.BAG IVPB SCH (10:06)
[2016-09-05] MEDS: PANTOPRAZOLE 40 MG/10 ML VIAL IV SCH (10:06)
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
[2016-09-05] MEDS: FLUCONAZOLE IN NACL,ISO-OSM 100 MG in SALINE 1 50ML.BAG IVPB SCH (12:25)
[2016-09-05] MEDS: MEROPENEM 1 GM in SODIUM CHLORIDE 0.9% 100 ML IVPB SCH ×2 (12:30→22:21)
[2016-09-05 13:04] LABS: Glucose,Whole Blood 133 mg/dL (75-99)
[2016-09-05] MEDS: DILTIAZEM 125 MG in SODIUM CHLORIDE 0.9% 100 ML IV SCH (14:04)
--- NOTE | 2016-09-05 16:52 | P.PN ---
Progress Note - Text Patient is stable. Had some emesis yesterday morning so that tube feeding was held. Otherwise, no major changes. Abdomen unchanged. Midline incision is healing nicely with no evidence of any complications of infection. Hemoglobin is stable. Recommendation continued supportive care. Monitored NG output did have bowel movements. Hopefully the NG tube can be DC'd in the next day or 2.
[2016-09-05 16:54] LABS: Glucose,Whole Blood 111 mg/dL (75-99)
--- NOTE | 2016-09-05 16:56 | PN ---
DATE OF SERVICE: 09/05/2016 REASON FOR FOLLOWUP: Fever, possible aspiration pneumonia. INTERVAL HISTORY: The patient did spike a fever last night of 101.2. I was not notified. It is 100.7 this morning. Hemodynamically stable. Patient remains slightly lethargic, unable to provide any history. FiO2 remains stable. On examination, blood pressure 123/59 with a pulse of 126, temperature of 100.7, T-max 101. He is 95% on 40% FiO2. General description is a middle-aged male, intubated on the trach, lying in bed. No distress. RESPIRATORY SYSTEM: Unlabored breathing. Clear to auscultation anteriorly. HEART: S1, S2. Regular rate and rhythm. ABDOMEN: Soft. Slightly distended. LABS: Hemoglobin 8.3, white count 8.1 with a BUN of 38. Creatinine is 2.50. DIAGNOSTIC IMPRESSION AND PLAN: Patient with sepsis, now with a new fever and an elevated white count. Yesterday he had an episode of vomiting, likely aspiration pneumonitis. Sputum culture requested yesterday. Will obtain blood cultures and discontinue Zosyn, add Meropenem. Continue vancomycin. Overall prognosis remains guarded. His was present at the beside. All her questions and concerns were answered.
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
[2016-09-05 18:40] LABS: Glucose,Whole Blood 119 mg/dL (75-99)
[2016-09-05] MEDS: SODIUM CHLORIDE 0.9% 1,000 ML IV SCH (20:02)
[2016-09-05 20:06] LABS: Glucose,Whole Blood 129 mg/dL (75-99)
[2016-09-05 23:58] LABS: Glucose,Whole Blood 136 mg/dL (75-99)
[2016-09-06] MEDS: INSULIN LISPRO (humaLOG) 300 UNIT/3 ML VIAL SQ SCH ×7 (00:25→23:22)
[2016-09-06] MEDS: METOCLOPRAMIDE 5 MG/ML 2 ML VIAL IVP SCH ×5 (00:26→23:20)
[2016-09-06] MEDS: IPRATROPIUM-ALBUTEROL 3 ML NEB INHALATION SCH ×6 (02:59→23:39)
[2016-09-06] MEDS: PROPOFOL 500 MG in EMPTY BAG 1 BAG IV SCH ×3 (04:00→08:51)
[2016-09-06 04:09] LABS: Glucose,Whole Blood 147 mg/dL (75-99)
[2016-09-06] MEDS: DILTIAZEM 125 MG in SODIUM CHLORIDE 0.9% 100 ML IV SCH ×2 (04:18→19:56)
[2016-09-06 04:57] LABS: ABG Base Excess -2.3 mmol/L; ABG HCO3 22 mmol/L (21-25); ABG PCO2 34 mmHg (35-45); ABG PH 7.42 (7.35-7.45); ABG PO2 82 mmHg (83-108); ABG TCO2 23 mmol/L (19-24)
[2016-09-06 05:33] LABS: Anisocytosis Slight; CH 29.5; CHCM 31.1; HCT 25.6 % (39.0-53.0); HDW 4.27; Hypochromasia Marked; MCHC 31.1 g/dL (31.0-37.0); MCV 96.3 fL (80.0-100.0); Macrocytosis Slight; Mean Platelet Volume 8.8; Poikilocytosis Moderate; RBC 2.65 m/uL (4.30-5.90); RDW 19.2 % (11.5-15.5)
--- NOTE | 2016-09-06 05:48 | PCN ---
DATE OF PROCEDURE: ADDENDUM: The left side of the groin was prepped and drapes applied in usual sterile manner. Left side 1% lidocaine infiltrated and left common femoral vein was punctured with micropuncture needle and 4 Faroese sheath was advanced. After that we ( ) a regular guidewire and dilator was advanced and 27 dialysis catheter was placed. Tip of the catheter was in superior vena cava and atrium, flushed with heparin saline and hep-locked. Patient tolerated the procedure well.
[2016-09-06 06:07] LABS: Magnesium 2.2 mg/dL (1.6-2.3); Phosphorous 3.4 mg/dL (2.5-4.5); Potassium 4.6 mmol/L (3.5-5.1); Total Bilirubin 2.4 mg/dL (0.2-1.3); Total Protein 5.7 g/dL (6.3-8.2)
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
[2016-09-06 08:14] LABS: Glucose,Whole Blood 123 mg/dL (75-99)
[2016-09-06] MEDS: CALCIUM ACETATE 667 MG CAP PO SCH ×2 (09:04→17:22)
[2016-09-06] MEDS: LACTULOSE 20 GM/30 ML CUP PO SCH ×4 (09:05→20:36)
[2016-09-06] MEDS: CHLORHEXIDINE GLUCONATE 15 ML CUP MUCOUS MEM SCH ×2 (09:05→20:36)
[2016-09-06] MEDS: METOPROLOL TARTRATE 25 MG TAB PO SCH ×4 (09:06→20:36)
[2016-09-06] MEDS: PANTOPRAZOLE 40 MG/10 ML VIAL IV SCH (09:06)
[2016-09-06] MEDS: MEROPENEM 1 GM in SODIUM CHLORIDE 0.9% 100 ML IVPB SCH ×2 (09:25→20:37)
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
[2016-09-06 12:10] LABS: Glucose,Whole Blood 105 mg/dL (75-99)
[2016-09-06] MEDS: FLUCONAZOLE IN NACL,ISO-OSM 100 MG in SALINE 1 50ML.BAG IVPB SCH (12:14)
[2016-09-06] MEDS: 1: MVI, ADULT NO.4 WITH VIT K 10 ML, TRACE (CONC-1ML/DOSE) 1 ML, PARENTERAL ELECTROLYTES IV SCH ×10 (12:37)
[2016-09-06] MEDS: HYDROmorphone 1 MG/ML 1 ML SYRINGE IVP PRN (12:44)
--- NOTE | 2016-09-06 14:45 | P.PN ---
Progress Note - Text Pt is unresponsive. No signif improvement Abd exam unchanged. planning on comfort care.
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
[2016-09-06 16:25] LABS: Glucose,Whole Blood 102 mg/dL (75-99)
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
[2016-09-06] MEDS: SODIUM CHLORIDE 0.9% 1,000 ML IV SCH (19:55)
[2016-09-06 20:00] LABS: Glucose,Whole Blood 91 mg/dL (75-99)
[2016-09-06 23:23] LABS: Glucose,Whole Blood 98 mg/dL (75-99)
[2016-09-07] MEDS: HYDROmorphone 1 MG/ML 1 ML SYRINGE IVP PRN (01:07)
[2016-09-07] MEDS: DILTIAZEM 125 MG in SODIUM CHLORIDE 0.9% 100 ML IV SCH (02:57)
[2016-09-07] MEDS: 1: MVI, ADULT NO.4 WITH VIT K 10 ML, TRACE (CONC-1ML/DOSE) 1 ML, PARENTERAL ELECTROLYTES IV SCH ×5 (03:17)
[2016-09-07] MEDS: IPRATROPIUM-ALBUTEROL 3 ML NEB INHALATION SCH ×3 (03:24→11:46)
[2016-09-07 03:38] LABS: Anisocytosis Slight; CH 29.5; CHCM 30.6; HCT 25.7 % (39.0-53.0); HDW 4.09; HGB 7.8 gm/dL (13.0-17.5); Hypochromasia Marked; MCH 29.5 pg (25.0-35.0); MCHC 30.2 g/dL (31.0-37.0); MCV 97.7 fL (80.0-100.0); Macrocytosis Slight; Mean Platelet Volume 8.7; Poikilocytosis Moderate; RBC 2.63 m/uL (4.30-5.90); RDW 18.9 % (11.5-15.5); WBC 22.1 k/uL (3.8-10.6)
[2016-09-07 04:02] LABS: Magnesium 2.2 mg/dL (1.6-2.3); Phosphorous 3.3 mg/dL (2.5-4.5); Potassium 4.9 mmol/L (3.5-5.1); Total Bilirubin 2.6 mg/dL (0.2-1.3); Total Protein 5.7 g/dL (6.3-8.2)
[2016-09-07 04:42] LABS: ABG HCO3 23 mmol/L (21-25); ABG PCO2 41 mmHg (35-45); ABG PH 7.37 (7.35-7.45); ABG PO2 77 mmHg (83-108)
[2016-09-07 04:43] LABS: ABG Base Excess -1.2 mmol/L; ABG TCO2 25 mmol/L (19-24)
[2016-09-07] MEDS: INSULIN LISPRO (humaLOG) 300 UNIT/3 ML VIAL SQ SCH ×3 (06:45→12:06)
[2016-09-07] MEDS: METOCLOPRAMIDE 5 MG/ML 2 ML VIAL IVP SCH ×2 (06:45→12:06)
--- NOTE | 2016-09-07 06:56 | PN ---
DATE OF SERVICE: 09/06/2016 Reason for followup is sepsis and likely aspiration pneumonia. INTERVAL HISTORY: The patient overall feels better and has improved. No fever has been recorded since the last 24 hours. The patient is hemodynamically stable as well, currently off the pressor support. The patient remains to be lethargic, not responsive. No ( ) history could be obtained from the patient. No significant diarrhea. On examination, blood pressure 117/46 with pulse of 103, temperature 99.6. He is a 97% on 40% FiO2. General description is a middle-age male lying in bed in no distress. RESPIRATORY SYSTEM: Unlabored breathing with decreased breath sounds at the bases, no wheeze. HEART: S1, S2. Regular rate and rhythm. ABDOMEN: Soft. Slightly distended. LABS: Hemoglobin 80, white count 29,000, BUN of 39, creatinine 2.70. Sputum eddy albicans. DIAGNOSTIC IMPRESSION AND PLAN: Patient with sepsis with possible aspiration pneumonitis in a patient who did have witnessed aspiration noticed with a new fever. Overall new fever has improved after addition of meropenem, will be continued. Family is leaning more towards hospice which in the case antibiotic ( ) discontinued. Continue with meropenem and vancomycin at this point. Continue supportive care.
--- NOTE | 2016-09-07 07:35 | XR ---
EXAMINATION TYPE: XR chest 1V DATE OF EXAM: 09/07/2016 HISTORY: intubated. REFERENCE: Previous study dated 09/05/2016. FINDINGS: There has been a midline sternotomy. The patient's NG tube and right internal jugular catheter remain in place, unchanged in appearance. T here is a tracheostomy tube in place. Its tip overlies the tracheal air column in this single frontal projection. The heart is enlarged. There is vascular congestion with worsening alveolar airspace disease. There a re small effusions. IMPRESSION: WORSENING CHANGES OF HEART FAILURE.
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
[2016-09-07 08:30] LABS: Glucose,Whole Blood 103 mg/dL (75-99)
[2016-09-07] MEDS: SODIUM CHLORIDE 0.9% 1,000 ML IV SCH (09:12)
[2016-09-07] MEDS: CHLORHEXIDINE GLUCONATE 15 ML CUP MUCOUS MEM SCH (09:12)
[2016-09-07] MEDS: CALCIUM ACETATE 667 MG CAP PO SCH (09:12)
[2016-09-07] MEDS: LACTULOSE 20 GM/30 ML CUP PO SCH ×2 (09:12→12:06)
--- NOTE | 2016-09-07 10:06 | P.PN ---
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 however, we will continue with full supportive care at this point. Continue with his current vent settings. We'll continue with his current medications. We'll await further direction from the family. Critical care time 34 minutes. Time with Patient: Greater than 30
[2016-09-07] MEDS: MEROPENEM 1 GM in SODIUM CHLORIDE 0.9% 100 ML IVPB SCH (10:31)
[2016-09-07] MEDS: PANTOPRAZOLE 40 MG/10 ML VIAL IV SCH (10:31)
[2016-09-07] MEDS: METOPROLOL TARTRATE 25 MG TAB PO SCH ×2 (10:31→12:06)
[2016-09-07 11:16] VITALS: BMI 42.3
[2016-09-07] MEDS: FLUCONAZOLE IN NACL,ISO-OSM 100 MG in SALINE 1 50ML.BAG IVPB SCH (12:06)
[2016-09-07 12:23] VITALS: PULSE 102; RESP 30; TEMP 99.3
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
--- NOTE | 2016-09-07 17:37 | PN ---
DATE OF SERVICE: 09/07/2016 REASON FOR FOLLOWUP: Sepsis, aspiration pneumonia. INTERVAL HISTORY: The patient was seen on rounds early this morning. The patient remains afebrile. He is hemodynamically stable, not on any pressor support. The patient was unable to provide ( ) history. No significant nausea, vomiting or diarrhea has been noticed. On examination, blood pressure 98/41 with a pulse of 102, temperature 99.3. He is 100% on 40% FiO2. General description is a middle-aged male lying in bed in no distress. RESPIRATORY SYSTEM: Unlabored breathing. Clear to auscultation anteriorly. HEART: S1, S2. Regular rate and rhythm. ABDOMEN: Soft. Slightly distended. LABS: White count is down to ( ).1 with a BUN of 43, creatinine 2.70. ( ) DIAGNOSTIC IMPRESSION AND PLAN: Patient with sepsis, multifactorial, with a component of possible aspiration pneumonia ( ) initial abdominal source. Family is leaning more towards hospice care, which may be appropriate for him at this point. Antibiotic can be safely discontinued, and we will sign off.
== END 2016-09-07 12:55 | disposition hospice, home (50) | DRG 4 ==
LOC: EC 18:10 → 6ICU 19:39
PROVIDERS: ADMIT Surgery; ATTEND Surgery
PROC: 30233R1 Transfusion of Nonautologous Platelets into Peripheral Vein, Percutaneous Approach (ICD-10-PCS; 2016-08-23)
PROC: 30233L1 Transfusion of Nonautologous Fresh Plasma into Peripheral Vein, Percutaneous Approach (ICD-10-PCS; 2016-08-23)
PROC: 30233N1 Transfusion of Nonautologous Red Blood Cells into Peripheral Vein, Percutaneous Approach (ICD-10-PCS; 2016-08-23)
PROC: 5A1955Z Respiratory Ventilation, Greater than 96 Consecutive Hours (ICD-10-PCS; principal; 2016-08-23 17:00)
PROC: 0BH18EZ Insertion of Endotracheal Airway into Trachea, Via Natural or Artificial Opening Endoscopic (ICD-10-PCS; principal; 2016-08-23 17:00)
PROC: 0W3G0ZZ Control Bleeding in Peritoneal Cavity, Open Approach (ICD-10-PCS; principal; 2016-08-23 17:00)
PROC: 0W9B00Z Drainage of Left Pleural Cavity with Drainage Device, Open Approach (ICD-10-PCS; principal; 2016-08-23 17:00)
PROC: 5A1D60Z (ICD-10-PCS; 2016-08-29)
PROC: 02HV33Z Insertion of Infusion Device into Superior Vena Cava, Percutaneous Approach (ICD-10-PCS; 2016-08-31)
PROC: 0B110F4 Bypass Trachea to Cutaneous with Tracheostomy Device, Open Approach (ICD-10-PCS; 2016-09-01)
DX: S36.893A Laceration of other intra-abdominal organs, initial encounter (principal); N17.0 Acute kidney failure with tubular necrosis; J69.0 Pneumonitis due to inhalation of food and vomit; A41.9 Sepsis, unspecified organism; I13.2 Hypertensive heart and chronic kidney disease with heart failure and with stage 5 chronic kidney disease, or end stage renal disease; R57.1 Hypovolemic shock; R65.21 Severe sepsis with septic shock; S27.1XXA Traumatic hemothorax, initial encounter; J96.01 Acute respiratory failure with hypoxia; N18.6 End stage renal disease; S32.512A Fracture of superior rim of left pubis, initial encounter for closed fracture; S27.329A Contusion of lung, unspecified, initial encounter; D62 Acute posthemorrhagic anemia; I48.1 Persistent atrial fibrillation; S22.071A Stable burst fracture of T9-T10 vertebra, initial encounter for closed fracture; N13.30 Unspecified hydronephrosis; S22.43XA Multiple fractures of ribs, bilateral, initial encounter for closed fracture; E87.4 Mixed disorder of acid-base balance; Z99.11 Dependence on respirator [ventilator] status; E87.1 Hypo-osmolality and hyponatremia; J98.11 Atelectasis; R18.8 Other ascites; I48.2 Chronic atrial fibrillation; E86.1 Hypovolemia; V43.62XA Car passenger injured in collision with other type car in traffic accident, initial encounter; J44.9 Chronic obstructive pulmonary disease, unspecified; I25.10 Atherosclerotic heart disease of native coronary artery without angina pectoris; L40.9 Psoriasis, unspecified; E78.5 Hyperlipidemia, unspecified; E66.9 Obesity, unspecified; E83.39 Other disorders of phosphorus metabolism; E87.6 Hypokalemia; Z66 Do not resuscitate; E11.22 Type 2 diabetes mellitus with diabetic chronic kidney disease; Z51.5 Encounter for palliative care; I50.9 Heart failure, unspecified; Z79.82 Long term (current) use of aspirin; Z99.2 Dependence on renal dialysis; Z85.51 Personal history of malignant neoplasm of bladder; Z79.899 Other long term (current) drug therapy; Z79.51 Long term (current) use of inhaled steroids; Z93.6 Other artificial openings of urinary tract status; Z95.1 Presence of aortocoronary bypass graft; Z95.3 Presence of xenogenic heart valve; Z82.49 Family history of ischemic heart disease and other diseases of the circulatory system; Z90.6 Acquired absence of other parts of urinary tract; Z95.2 Presence of prosthetic heart valve
CPT/HCPCS: 36415; 36430; 36556; 70450; 71010; 71250; 71260; 72125; 72170; 74176; 74177; 80048; 80051; 80053; 80202; 80320; 81001; 82150; 82330; 82533; 82550; 82553; 82805; 83036; 83605; 83690; 83735; 84100; 84132; 84439; 84443; 84478; 84484; 85025; 85027; 85379; 85384; 85610; 85730; 86705; 86706; 86850; 86900; 86901; 86920; 87040; 87070; 87086; 87205; 87340; 90935; 93005; 93306; 94002; 94003; 94640; 94660; 99291

== ENCOUNTER 2016-09-07 13:04 | Inpatient (IN) | payer MEDICAID ==
[2016-09-07] MEDS ORDERED: LORazepam 2 MG/ML SYRINGE IV PRN ×2 (13:27)
[2016-09-07] MEDS ORDERED: ATROPINE OPHTH SOLN 1% 5ML BTL BOTH EYES PRN (13:29)
[2016-09-07] MEDS ORDERED: MORPHINE SULFATE (100 MG/2 ML) 100 MG in SODIUM CHLORIDE 0.9% 100 ML IV SCH (13:30)
[2016-09-07] MEDS ORDERED: SCOPOLAMINE 1.5MG/72HR PATCH TRANSDERM SCH (13:30)
[2016-09-07] MEDS ORDERED: ACETAMINOPHEN SUPPOSITORY 650 MG SUPP RECTAL PRN (13:30)
[2016-09-07] MEDS ORDERED: BISACODYL 10 MG SUPP RECTAL PRN (13:31)
[2016-09-07] MEDS ORDERED: ONDANSETRON 4 MG/2 ML VIAL IVP PRN (13:32)
[2016-09-07] MEDS ORDERED: LORazepam 2 MG/ML SYRINGE IV STA (13:33)
[2016-09-07] MEDS ORDERED: MORPHINE SULFATE 2 MG/ML SYRINGE IVP STA (13:34)
[2016-09-07 13:56] VITALS: BMI 42.6
== END 2016-09-07 15:45 | disposition expired | DRG 292 ==
LOC: 6ICU 13:04
PROVIDERS: ADMIT Family Medicine; ATTEND Family Medicine
DX: I50.9 Heart failure, unspecified (principal); Z68.41 Body mass index [BMI] 40.0-44.9, adult; C67.9 Malignant neoplasm of bladder, unspecified; N13.30 Unspecified hydronephrosis; Z95.1 Presence of aortocoronary bypass graft; D64.9 Anemia, unspecified; J44.9 Chronic obstructive pulmonary disease, unspecified; Z90.6 Acquired absence of other parts of urinary tract; Z66 Do not resuscitate; Z51.5 Encounter for palliative care; E11.9 Type 2 diabetes mellitus without complications; L40.9 Psoriasis, unspecified; E66.9 Obesity, unspecified; E78.5 Hyperlipidemia, unspecified; I25.10 Atherosclerotic heart disease of native coronary artery without angina pectoris; Z82.49 Family history of ischemic heart disease and other diseases of the circulatory system; Z79.51 Long term (current) use of inhaled steroids; Z79.899 Other long term (current) drug therapy; Z86.14 Personal history of Methicillin resistant Staphylococcus aureus infection; Z86.19 Personal history of other infectious and parasitic diseases; Z93.6 Other artificial openings of urinary tract status; S22.49XD Multiple fractures of ribs, unspecified side, subsequent encounter for fracture with routine healing; V49.9XXD Car occupant (driver) (passenger) injured in unspecified traffic accident, subsequent encounter